=== PATIENT | female | born 1970 | race Caucasian/White ===

== ENCOUNTER → 2023-09-06 11:04 | Outpatient (REF) | payer OTHER, SELFPAY | LOC: MRI 3T 11:04 | PROVIDERS: ATTENDING PHYSICIAN Nurse Practitioner Adult Health; FAMILY PHYSICIAN Nurse Practitioner; REFERRING PHYSICIAN Internal Medicine Gastroenterology | DX: K76.9 Liver disease, unspecified (principal) | CPT/HCPCS: 74183; A9575 ==

== ENCOUNTER → 2024-04-30 12:44 | Outpatient (REF) | payer OTHER, SELFPAY | LOC: WOUND 12:44 | PROVIDERS: ATTENDING PHYSICIAN Surgery; FAMILY PHYSICIAN Nurse Practitioner | DX: L97.822 Non-pressure chronic ulcer of other part of left lower leg with fat layer exposed (principal); I89.0 Lymphedema, not elsewhere classified; I87.2 Venous insufficiency (chronic) (peripheral); I73.9 Peripheral vascular disease, unspecified; E11.65 Type 2 diabetes mellitus with hyperglycemia; E66.01 Morbid (severe) obesity due to excess calories; F41.1 Generalized anxiety disorder | CPT/HCPCS: 99204 ==

== ENCOUNTER → 2024-05-09 13:09 | Outpatient (REF) | payer OTHER, SELFPAY | LOC: WOUND 13:09 | PROVIDERS: ATTENDING PHYSICIAN Surgery; FAMILY PHYSICIAN Nurse Practitioner | DX: L97.822 Non-pressure chronic ulcer of other part of left lower leg with fat layer exposed (principal); I89.0 Lymphedema, not elsewhere classified; I87.2 Venous insufficiency (chronic) (peripheral); I73.9 Peripheral vascular disease, unspecified; E11.65 Type 2 diabetes mellitus with hyperglycemia; E66.01 Morbid (severe) obesity due to excess calories; F41.1 Generalized anxiety disorder | CPT/HCPCS: 99213 ==

== ENCOUNTER → 2024-05-13 14:06 | Outpatient (REF) | payer OTHER, SELFPAY | LOC: RAD 14:06 | PROVIDERS: ATTENDING PHYSICIAN Surgery; FAMILY PHYSICIAN Nurse Practitioner | DX: L97.822 Non-pressure chronic ulcer of other part of left lower leg with fat layer exposed (principal); I73.9 Peripheral vascular disease, unspecified; I89.0 Lymphedema, not elsewhere classified; I87.2 Venous insufficiency (chronic) (peripheral) | CPT/HCPCS: 93922; 93925; 93970 ==

== ENCOUNTER 2024-06-18 07:11 | Outpatient (RCR) | payer OTHER, SELFPAY | END 2024-06-18 23:59 | disposition home or self-care (01) | LOC: RPT 07:11 | PROVIDERS: ATTENDING PHYSICIAN Nurse Practitioner; FAMILY PHYSICIAN Family Medicine | DX: I89.0 Lymphedema, not elsewhere classified (principal); Z73.6 Limitation of activities due to disability; R26.2 Difficulty in walking, not elsewhere classified | CPT/HCPCS: 97163; 97535 ==

== ENCOUNTER 2024-12-19 06:04 | Inpatient (IN) | payer OTHER, SELFPAY ==
[2024-12-18 22:28] VITALS: BP 165/89
[2024-12-18 22:55] LABS: % Basophils 0.7 % (0-2); % Immature Granulocytes 0.7 % (0-0.5); % Lymphocytes 22.7 % (20.5-51.1); % Monocytes 7.7 % (1.7-9.3); % Neutrophils 67.2 % (42.2-75.2); Absolute Basophils 0.1 10^3/uL (0-0.2); Absolute Eosinophils 0.1 10^3/uL (0-0.7); Absolute Immature Granulocytes 0.1 10^3/uL (0-0.05); Absolute Monocytes 0.7 10^3/uL (0.1-0.6); Hematocrit 36.8 % (37.0-47.0); Hemoglobin 12.5 g/dL (12.0-16.0); Mean Corpuscular Hgb 28.7 pg (27.0-31.0); Mean Corpuscular Volume 84.6 fL (81.0-99.0); Mean Platelet Volume 9.8 fL (7.4-10.4); Nucleated Red Blood Cells % 0 %; Platelet Count 366 10^3/uL (130-400); Red Blood Cell Count 4.35 10^6/uL (4.20-5.40); Red Cell Dist. Width 16.2 % (11.5-14.5)
[2024-12-18 23:19] LABS: ALT (SGPT) 17 U/L (0-35); AST (SGOT) 15 U/L (14-36); Albumin 4.1 g/dl (3.5-5.0); Alkaline Phosphatase 157 U/L (38-126); Blood Urea Nitrogen 20 mg/dl (7-17); Calcium 9.5 mg/dl (8.4-10.2); Carbon Dioxide 23 mmol/L (22-30); Chloride 102 mmol/L (98-107); Glucose 562 mg/dl (70-99); Potassium 4.7 mmol/L (3.5-5.1); Sodium 133 mmol/L (135-145); Total Protein 7.6 g/dl (6.3-8.2); eGFR > 60.00
--- NOTE | 2024-12-19 01:02 | ED.GENMED ---
History of Present Illness
<Nikko Hua DO - Last Filed: 12/19/24 01:04>
General
Chief Complaint: Skin Problem
Time Seen by Provider: 12/19/24 00:43
<Maria De Jesus Tian PA-C - Last Filed: 12/19/24 07:47>
General
Source: patient
Exam Limitations: none
Nursing documentation reviewed up to this point in time: agreed with
History of Present Illness
History of Present Illness:
54-year-old female with past history of insulin-dependent diabetes, asthma, who presents emergency department today with concerns of a poor healing wound to her left lower extremity. Patient reports that this wound has been going on for the past
month. She reports that she does not currently follow with a movie machine operator. She has a very low sensation in her lower extremities. Patient reports that she was seen for the wound a month ago was on Keflex which did not help her symptoms. Patient
reports that she recently lost insurance coverage for her insulin and has been off her insulin for multiple weeks. Patient recently got coverage again however she only has coverage for short acting insulin currently does not have a long-acting
insulin. Patient denies dizziness, lightheadedness, burning with urination. She denies any fevers or chills.
Past History
<DO Brandan Flannery Last Filed: 12/19/24 01:04>
Past History
ED Past Medical History: Asthma and NIDDM
ED Past Surgical History:
Social History
Tobacco: Non-smoker
Alcohol: None
Drug: None
Personal:
Living: with family
Employment: Employed
Family History
Family History: Other
Review of Systems
<NAIDA Michelle Last Filed: 12/19/24 07:47>
Review of Systems
All Other Systems: ROS reviewed and negative except as documented in HPI and ROS
Phy Exam
<Maria De Jesus Tian PA-C - Last Filed: 12/19/24 07:47>
Physical Exam
Physical Exam:
General: Patient is well appearing and in no acute distress; non-toxic
Skin: Bilateral lower extremities edematous with small weeping wound to left lower extremity with scattered areas of erythema
Head: Normocephalic, atraumatic
Eyes: Sclera non-icteric. EOMs intact.
Cardiac: Regular rate and rhythm, normal
Peripheral Vascular: 2+ DP pulses
Pulm: Normal respiratory effort, no wheezes, rales, or rhonchi
Abdomen: No abdominal tenderness to palpation
Neuro: CN II-XII intact, no focal neurologic deficits.
Psychiatric: Appropriate mood and affect.
Course
<Nikko Hua DO - Last Filed: 12/19/24 01:04>
Orders/Labs/Results
Orders:
Orders
12/18/24 22:47
Complete Blood Count/With Diff Urgent
Comprehensive Metabolic Panel Urgent
12/19/24 00:44
0.9% Sodium Chloride 1000 ml [Nss] 1,000 ml IV BOLUS
12/19/24 01:15
Insulin Aspart [NOVOLOG vial] 11 units SC NOW STA
12/19/24 01:26
Glucose Stat
12/19/24 03:20
Glucose Urgent
12/19/24 04:43
Cephalexin Monohydrate [Keflex] 500 mg PO NOW STA
12/19/24 04:44
0.9% Sodium Chloride 250 ml [Nss] 250 ml IV BOLUS
12/19/24 04:48
Sulfamethox./Trimethoprim Ds [Bactrim Ds 800 mg/160 mg] 1 tablet PO NOW STA
12/19/24 05:48
Admit/Transfer Patient As Directed
Co-Sign Provider:
Level of Care: Inpatient admission
Assign to:: Medical/Surgical
Physician / Group: Federico
Diagnosis: Cellulitis, Uncontrolled DM
Reason for Hospitalization: Cellulitis, Uncontrolled DM
Expected length of stay greater than two midnights?: Yes
ELOS- Estimated Length of Stay in days: 3
I certify the patient meets the requirements for IP care: Yes
PRN Pain Medication Management As Directed
May give lesser potent ordered pain med per pt: Yes
preference::
Protocol:: Medication orders for pain may be administered in a
manner that supports deferring to patient preference
when the pt is:
- Requesting an ordered lesser potent pain medication.
Least to most potent pain medications are defined
as: acetaminophen < NSAID < tramadol < opioids
(morphine, oxycodone, hydromorphone).
- Requesting a lesser dose of the same medication IF
ORDERED.
- Requesting a less intrusive route of administration
if both routes are prescribed by the provider (PO <
IV).
12/19/24 05:49
Code Status As Directed
Resuscitation Status: Full Code
12/19/24 05:51
Insulin Glargine Lantus [Lantus] 40 units Subcutaneous Insulin Syringe [Syringe-Insulin] 0 unit SC ONCE
12/19/24 Breakfast
2000 calorie (17 carb) Diabetic
At Your Request: Full Participation
Does patient need a safe tray?: No
12/19/24 06:22
Acetaminophen [Tylenol] 650 mg PO Q4HPRN PRN
Albuterol Nebs [Ventolin Nebules] 2.5 mg INH R Q4HPRN PRN
Dextrose 50%-Water [Dextrose 50% Syringe] 12.5 grams IV [id number] PRN
Glucagon [GlucaGen] 1 mg IM PRN PRN
12/19/24 06:22
WOUND/OSTOMY CONSULT Routine
Reason for Consult: LLE wound
Activity As Directed
Activity Level: Ambulate
With Assistance
Bedside Glucose Monitoring As Directed
Frequency: AC&HS
Additional Instructions:: Change to q6h if pt on TPN, tube feeding or not eating
I/O [Intake/ Output] As Directed
Frequency: Per unit guidelines
Vital Signs As Directed
Frequency: Per unit guidelines
Weight As Directed
Frequency: Daily
Oxygen Therapy [O2 Therapy] [RESP] Routine
Titrate/Wean O2 to maintain O2 sat greater than (%): 94
PT Consult [Pt Eval And Treat] Routine
Activity Level: Ambulate
With Assistance
US Periph Art LOWER Ext w MADISON Routine
Comment:
Reason For Exam: Lymphedema / discoloration
DX Deep Vein Thrombosis Video Routine
12/19/24 07:00
CeFAZolin 2 GRAM [Ancef] 2 grams in 10 ml IV Q8
12/19/24 07:30
Insulin Aspart Corrective Mod [Novolog Flexpen-Moderate Resistance] See Protocol SC AC
Insulin Aspart [NOVOLOG vial] 12 units SC AC
12/19/24 08:00
Fluticasone/Salmeterol 115/21 [Advair Hfa 115/21 Mcg Inhaler] 2 puff INH R BID
Gabapentin [Neurontin] 300 mg PO TID
Insulin Glargine Lantus [Lantus] 40 units Subcutaneous Insulin Syringe [Syringe-Insulin] 0 unit SC DAILY
Venlafaxine Extended Release [Effexor Xr] 75 mg PO DAILY
12/19/24 18:00
Enoxaparin Sodium [Lovenox] 40 mg SC QPM
Metformin Extended Release [Glucophage Xr Extended Release] 500 mg PO QPM
12/20/24 06:00
Basic Metabolic Panel IN AM
Complete Blood Count/No Diff IN AM
Glycohemoglobin (HgbA1c) IN AM
Abnormal Lab Results
12/18/24 12/19/2425
22:47 01:24 01:26
Hct 36.8 L %
(37.0-47.0)
RDW 16.2 H %
(11.5-14.5)
Abs Immat Gran (auto) 0.1 H 10^3/uL
(0-0.05)
Absolute Monos (auto) 0.7 H 10^3/uL
(0.1-0.6)
Immature Gran % 0.7 H %
(0-0.5)
Sodium 133 L mmol/L
(135-145)
BUN 20 H mg/dl
(7-17)
Glucose 562 H* mg/dl 563 H* mg/dl
(70-99) (70-99)
Alkaline Phosphatase 157 H U/L
(38-126)
POC Glucose 570 H* mg/dl
(70-99)
12/19/24 12/19/24
03:00 03:20
Hct
RDW
Abs Immat Gran (auto)
Absolute Monos (auto)
Immature Gran %
Sodium
BUN
Glucose 498 H* mg/dl
(70-99)
Alkaline Phosphatase
POC Glucose 525 H* mg/dl
(70-99)
12/18/24 22:47
12/19/24 03:20
Vital Signs
Initial and Last Documented VS:
Initial Vital Signs
Temp Pulse Resp BP Pulse Ox
97.8 F 91 16 165/89 100
12/18/24 22:28 12/18/24 22:28 12/18/24 22:28 12/18/24 22:28 12/18/24 22:28
Last Documented Vital Signs
Temp Pulse Resp BP Pulse Ox
97.8 F 91 20 165/89 100
12/18/24 22:28 12/18/24 22:28 12/19/24 01:08 12/18/24 22:28 12/18/24 22:28
<Maria De Jesus Tian PA-C - Last Filed: 12/19/24 07:47>
Orders/Labs/Results
Orders:
Orders
12/18/24 22:47
Complete Blood Count/With Diff Urgent
Comprehensive Metabolic Panel Urgent
12/19/24 00:44
0.9% Sodium Chloride 1000 ml [Nss] 1,000 ml IV BOLUS
12/19/24 01:15
Insulin Aspart [NOVOLOG vial] 11 units SC NOW STA
12/19/24 01:26
Glucose Stat
12/19/24 03:20
Glucose Urgent
12/19/24 04:43
Cephalexin Monohydrate [Keflex] 500 mg PO NOW STA
12/19/24 04:44
0.9% Sodium Chloride 250 ml [Nss] 250 ml IV BOLUS
12/19/24 04:48
Sulfamethox./Trimethoprim Ds [Bactrim Ds 800 mg/160 mg] 1 tablet PO NOW STA
12/19/24 05:48
Admit/Transfer Patient As Directed
Co-Sign Provider:
Level of Care: Inpatient admission
Assign to:: Medical/Surgical
Physician / Group: Federico
Diagnosis: Cellulitis, Uncontrolled DM
Reason for Hospitalization: Cellulitis, Uncontrolled DM
Expected length of stay greater than two midnights?: Yes
ELOS- Estimated Length of Stay in days: 3
I certify the patient meets the requirements for IP care: Yes
PRN Pain Medication Management As Directed
May give lesser potent ordered pain med per pt: Yes
preference::
Protocol:: Medication orders for pain may be administered in a
manner that supports deferring to patient preference
when the pt is:
- Requesting an ordered lesser potent pain medication.
Least to most potent pain medications are defined
as: acetaminophen < NSAID < tramadol < opioids
(morphine, oxycodone, hydromorphone).
- Requesting a lesser dose of the same medication IF
ORDERED.
- Requesting a less intrusive route of administration
if both routes are prescribed by the provider (PO <
IV).
12/19/24 05:49
Code Status As Directed
Resuscitation Status: Full Code
12/19/24 05:51
Insulin Glargine Lantus [Lantus] 40 units Subcutaneous Insulin Syringe [Syringe-Insulin] 0 unit SC ONCE
12/19/24 Breakfast
2000 calorie (17 carb) Diabetic
At Your Request: Full Participation
Does patient need a safe tray?: No
12/19/24 06:22
Acetaminophen [Tylenol] 650 mg PO Q4HPRN PRN
Albuterol Nebs [Ventolin Nebules] 2.5 mg INH R Q4HPRN PRN
Dextrose 50%-Water [Dextrose 50% Syringe] 12.5 grams IV [id number] PRN
Glucagon [GlucaGen] 1 mg IM PRN PRN
12/19/24 06:22
WOUND/OSTOMY CONSULT Routine
Reason for Consult: LLE wound
Activity As Directed
Activity Level: Ambulate
With Assistance
Bedside Glucose Monitoring As Directed
Frequency: AC&HS
Additional Instructions:: Change to q6h if pt on TPN, tube feeding or not eating
I/O [Intake/ Output] As Directed
Frequency: Per unit guidelines
Vital Signs As Directed
Frequency: Per unit guidelines
Weight As Directed
Frequency: Daily
Oxygen Therapy [O2 Therapy] [RESP] Routine
Titrate/Wean O2 to maintain O2 sat greater than (%): 94
PT Consult [Pt Eval And Treat] Routine
Activity Level: Ambulate
With Assistance
US Periph Art LOWER Ext w MADISON Routine
Comment:
Reason For Exam: Lymphedema / discoloration
DX Deep Vein Thrombosis Video Routine
12/19/24 07:00
CeFAZolin 2 GRAM [Ancef] 2 grams in 10 ml IV Q8
12/19/24 07:30
Insulin Aspart Corrective Mod [Novolog Flexpen-Moderate Resistance] See Protocol SC AC
Insulin Aspart [NOVOLOG vial] 12 units SC AC
12/19/24 08:00
Fluticasone/Salmeterol 115/21 [Advair Hfa 115/21 Mcg Inhaler] 2 puff INH R BID
Gabapentin [Neurontin] 300 mg PO TID
Insulin Glargine Lantus [Lantus] 40 units Subcutaneous Insulin Syringe [Syringe-Insulin] 0 unit SC DAILY
Venlafaxine Extended Release [Effexor Xr] 75 mg PO DAILY
12/19/24 18:00
Enoxaparin Sodium [Lovenox] 40 mg SC QPM
Metformin Extended Release [Glucophage Xr Extended Release] 500 mg PO QPM
12/20/24 06:00
Basic Metabolic Panel IN AM
Complete Blood Count/No Diff IN AM
Glycohemoglobin (HgbA1c) IN AM
Abnormal Lab Results
12/18/24 12/19/24 12/19/24
22:47 01:24 01:26
Hct 36.8 L %
(37.0-47.0)
RDW 16.2 H %
(11.5-14.5)
Abs Immat Gran (auto) 0.1 H 10^3/uL
(0-0.05)
Absolute Monos (auto) 0.7 H 10^3/uL
(0.1-0.6)
Immature Gran % 0.7 H %
(0-0.5)
Sodium 133 L mmol/L
(135-145)
BUN 20 H mg/dl
(7-17)
Glucose 562 H* mg/dl 563 H* mg/dl
(70-99) (70-99)
Alkaline Phosphatase 157 H U/L
(38-126)
POC Glucose 570 H* mg/dl
(70-99)
12/19/24 12/19/24
03:00 03:20
Hct
RDW
Abs Immat Gran (auto)
Absolute Monos (auto)
Immature Gran %
Sodium
BUN
Glucose 498 H* mg/dl
(70-99)
Alkaline Phosphatase
POC Glucose 525 H* mg/dl
(70-99)
12/18/24 22:47
12/19/24 03:20
Vital Signs
Initial and Last Documented VS:
Initial Vital Signs
Temp Pulse Resp BP Pulse Ox
97.8 F 91 16 165/89 100
12/18/24 22:28 12/18/24 22:28 12/18/24 22:28 12/18/24 22:28 12/18/24 22:28
Last Documented Vital Signs
Temp Pulse Resp BP Pulse Ox
97.8 F 91 20 165/89 100
12/18/24 22:28 12/18/24 22:28 12/19/24 01:08 12/18/24 22:28 12/18/24 22:28
Malilt;Maria De Jesus Tian PA-C - Last Filed: 12/19/24 07:47>
MDM/Problems Addressed
Differential Diagnosis Includes:
DKA, HHS, cellulitis, diabetic wound, peripheral vascular disease, uncontrolled diabetes
MDM/Problems Addressed:
54-year-old female with a past medical history of asthma, insulin-dependent diabetes presents emergency department today with concerns of bilateral lower extremity edema, poor healing wound, and uncontrolled diabetes. On physical exam, she has
bilateral lower extremity edema with weeping wound. Is persistently draining fluid. It is a chronic wound however she feels like it is not improving even after Plex. She has significant gaps in her insurance coverage and care and reports that she
has been off insulin for multiple weeks and currently does not have a long-acting insulin. Initial plan was to start her on Bactrim for MRSA coverage and control her sugars and send her home to her PCP however after he doses of insulin and fluids,
her sugar fails to improve. In light of gaps in coverage, and unable to get into a receipt and report clerk, along with high resistant sugars, will admit for further diabetic management. Patient referred for admission.
<Maria De Jesus Tian PA-C - Last Filed: 12/19/24 07:47>
*Pulse Oximetry
Patient hypoxic: no
*Critical Care Note
Total Time (30-74mins, 75-104mins- exclusive of procedures): Not Applicable
Data Reviewed
Review of Other/Old Records Reveals: Records (Reviewed discharge summary from 03/12/2023 patient seen for acute hyperglycemia and new onset diabetes)
Source: patient and records
ED Attending Note
<Nikko Hua DO - Last Filed: 12/19/24 01:04>
ED Attending Note
Patient seen and examined by attending physician: Yes
I performed the substantive portion of visit, reviewed & personally made and approve the management plan that is documented in note by myself or MYKEL.: Yes
ED Attending Note:
I have seen and evaluated the patient with a [id number] encounter. I have spoken to the advance practicer provider and involved in the medical history, the physical exam, medical decision making.
Evaluation and management service: agree unless noted differently below.
Results interpretation: agree unless noted differently below.
Focused HPI: 54-year-old female presenting for evaluation of chronic wound to her left leg. Patient has a history of lymphedema. She finished a course of Keflex a few weeks ago. She thinks it helped
Physical exam: Lymphedema to both legs. Chronic wound to left lateral distal leg with clear fluid oozing
Medical Decision Making: Patient states she did not have insurance recently and was out of Lasix and her insulin. Patient is hyperglycemic but no evidence of DKA. She states she has insulin at home now. She does not check her blood sugar but her
monitor is ready for pickup, per patient. I did offer admission given her uncontrolled blood sugar and her edema. Patient states she going home. Will give dose of insulin and start Bactrim
-
Portions of this chart may have been created with voice recognition software.� Occasional wrong word or��sound alike� substitutions may have occurred due to the inherent limitations of voice recognition software.
Discharge Plan
Departure
Patient Disposition: Admit
Date of Disposition: 12/19/24
Time of Disposition: 04:54
Admit to: Med/Surg
Presentation/result/management discussed w/ accepting MD/DO: Hospitalist
Patient with high blood pressure during this ER visit?: Yes
Condition: Fair
Discharge Problem:
Uncontrolled diabetes mellitus, Non-healing wound
Interventions
Interventions:
*Risk Screen - Suicide Last Done: 12/18/24 22:28
*Neglect/Abuse Screening Last Done: 12/18/24 22:28
ED-Skin Assessment Last Done: 12/19/24 00:30
[2024-12-19] MEDS: NSS 1000 IV (01:04)
[2024-12-19 01:26] LABS: Glucose - Point of Care 570 mg/dl (70-99)
[2024-12-19 01:56] LABS: Glucose 563 mg/dl (70-99)
[2024-12-19] MEDS: NOVOLOG vial 11 UNITS SC (02:05)
[2024-12-19 03:02] LABS: Glucose - Point of Care 525 mg/dl (70-99)
[2024-12-19 03:53] LABS: Glucose 498 mg/dl (70-99)
[2024-12-19] MEDS: NSS 250 IV (05:22)
[2024-12-19] MEDS: BACTRIM DS 800 MG/160 MG 1 TABLET PO (05:22)
--- NOTE | 2024-12-19 05:52 | HPS.HSE ---
Family Physician
-
Family Physician: Alejandra Cohen
Chief Complaint
-
L Foot Redness / Leg Wound, Uncontrolled Glucose
History of Present Illness
Patient is a 54y F with PMH significant for DM-II, chronic lymphedema and morbid obesity who presents to ED complaining of uncontrolled DM and L foot redness / wound. Patient notes that she has been out of insulin for the past 2 1/2 weeks due to
insurance issues. She was seen by her PCP today and it was noted as well that her L foot was very red, swollen and warm. She was sent to the ED for evaluation. Patient reports intermittent chills x several days. No N/V. She has decreased
sensation in the feet - no pain. She has a chronic wound on the lateral aspect of the L lower leg which weeps clear fluid - no change / purulence / etc.
Medical History
Past Medical History
Past Medical History: Reports Other
Additional Past Medical History:
DM-II
Chronic Lymphedema
Morbid Obesity
Asthma
Anxiety / Depression
Past Surgical History: Reports Other
Additional Past Surgical History:
x 3
D&C
Right Ankle ORIF
Right Wrist ORIF
Social History
Tobacco: Non-smoker
Alcohol: Occasional
Drug: None
Family History
Family History: Not pertinent
Allergies / Home Medications
Allergies reflects when Allergies were last updated in [facility].
Home Medications with original date entered in [facility]
Allergy/Medication List:
Allergies
Allergy/AdvReac Type Severity Reaction Status Date / Time
house dust Allergy Unknown Verified 12/18/24 22:31
pollen extracts (Pollen Allergy Unknown Verified 12/18/24 22:31
Extracts)
Home Medications
albuterol sulfate 90 mcg/actuation aerosol inhaler 2 puff inhalation R Q4 PRN sob/wheezing 03/10/23
gabapentin 300 mg capsule 300 mg PO TID Pain 03/10/23
insulin aspart U-100 100 unit/mL (3 mL) subcutaneous pen (Novolog FlexPen U-100 Insulin aspart) 15 - 20 unit SC AC 03/23/23
insulin glargine 100 unit/mL (3 mL) subcutaneous pen (Lantus Solostar U-100 Insulin) 40 unit SC HS 03/23/23
metformin 500 mg tablet,extended release 24 hr 500 mg PO QPM 03/23/23
fluticasone propionate 115 mcg-salmeterol 21 mcg/actuation HFA inhaler (Advair HFA) 2 puff inhalation BID 12/19/24
venlafaxine 75 mg tablet 75 mg PO DAILY 12/19/24
Review of Systems
-
History Source: Patient
A 12 point ROS was completed and negative except as noted: Yes
Constitutional: Reports Fatigue and Chills; Denies Fever
Respiratory: Denies Cough or Trouble Breathing
Cardiac: Denies Chest Pain or Palpitations
Abdomen/GI: Denies Abdominal Pain, Nausea, Vomiting or Diarrhea
: Denies Dysuria, Frequency or Flank Pain
Musculoskeletal: Reports Edema; Denies Joint Pain
Skin: Reports Other (Increased redness of the L foot. Chronic wound on the L lower leg.)
Physical Exam
Vital Signs
Vital Signs
Temp Pulse Resp BP Pulse Ox
97.8 F 91 20 165/89 100
12/18/24 22:28 12/18/24 22:28 12/19/24 01:08 12/18/24 22:28 12/18/24 22:28
Physical Exam
General: Other (54y F in no acute distress.)
HEENT: Moist mucous membranes and Other (Thick neck.)
Respiratory: Clear; No Wheezes, Rales or Rhonchi
Cardiac: S1/S2, Regular Rhythm and Murmur (II/ JINA)
GI: Other (Obese, not tender, pos BS.)
Musculoskeletal: Other (Marked bilateral LE lymphedema. Dressing in place over LLE lateral ulceration with clear oozing / discharge. No bleeding / purulence.)
Skin: Other (L foot with deep red erythema of all toes and dorsum of foot. Extension / lymphagitis into the medial aspect of the foot.)
Neuro: AO x 3
Laboratory Results
-
12/18/24 22:47
12/19/24 03:20
Laboratory Results
Total Bilirubin 1.0 mg/dl (0.2-1.3) 12/18/24 22:47
AST 15 U/L (14-36) 12/18/24 22:47
ALT 17 U/L (0-35) 12/18/24 22:47
Alkaline Phosphatase 157 U/L (38-126) H 12/18/24 22:47
Impression/Plan
-
A/P: Patient is a 54y F with PMH significant for DM-II, lymphedema and morbid obesity who presents to ED for evaluation of uncontrolled DM and L foot redness.
LLE Cellulitis
- Admit for further evaluation and treatment.
- Erythema, induration and increased warmth in the L foot with spread into the medial aspect of the foot.
- IV Ancef for now and follow for clinical improvement.
- Check non-invasive vascular studies as well given atypical discoloration.
Chronic LLE Wound
Chronic Lymphedema
- Stable. Does not appear acutely infected / involved with foot cellulitis.
- Wound Care eval for additional recommendations.
- PT / Lymphedema eval.
DM-II, Uncontrolled.
- Marked hyperglycemia secondary to lack of insulin +/- acute infection.
- Normal anion gap.
- Restart basal : bolus insulin regimen.
- Follow glucose and cover with SSI as needed.
- Adjust regimen for improved glycemic control.
Asthma without Acute Exacerbation
- Stable. Continue Advair / albuterol PRN.
Anxiety / Depression
- Stable. Continue venlafaxine.
Morbid Obesity due to excess calories
- Affects all aspects of care.
- Encourage healthy diet and increased activity with goal of weight loss.
DVT Prophylaxis: Lovenox
Code Status: Full
[2024-12-19] MEDS: LANTUS 0.4 UNITS SC ×2 (06:19→09:38)
[2024-12-19] MEDS: ANCEF 10 IV ×3 (07:50→23:40)
[2024-12-19] MEDS: ADVAIR HFA 115/21 MCG INHALER 2 PUFF INH ×2 (08:18→19:18)
[2024-12-19 08:45] LABS: Glucose - Point of Care 386 mg/dl (70-99)
[2024-12-19 08:53] VITALS: BP 115/73
[2024-12-19] MEDS: NOVOLOG vial 12 UNITS SC (09:34)
[2024-12-19] MEDS: EFFEXOR XR 75 MG PO ×2 (09:36→22:03)
[2024-12-19] MEDS: NOVOLOG FLEXPEN-MODERATE RESISTANCE 9 UNITS SC (09:37)
[2024-12-19] MEDS: NEURONTIN 300 MG PO (09:38)
--- NOTE | 2024-12-19 09:45 | WOUNDNOTE ---
WO RN note: Patient admitted with cellulitis, uncontrolled DM, LLE/L foot cellulitis. Patient lives with her daughter.
See H&P for complete history.
PMH: DM, lymphedema, obesity, LLE wound, asthma, anxiety/depression, C section, R ankle ORIF, R wrist ORIF.
Wound Location and type/assessment: Patient admitted with: L lateral calf dermal ulcer r/t lymphedema, weeping skin L dorsal foot/LE. MASD abdominal fold and coccyx crease. Heels blanchable red (L more red than R). + LE edema. Patient reports LE
edema is chronic. +Pedal pulses heard via portable Doppler.
Appetite: good.
Pressure redistribution devices in place: ED stretcher. Patient ambulates with crutches.
Plan: Patient incontinent of urine. Assisted patient with changing her coni pads/coni care. LLE dressing applied. Bilateral knee high Kavon wraps applied (padded ankles creases with ABD pads/non woven gauze pads under Kavon). Air chair cushion placed
under each heel. Patient stated she's been at outpatient lymphedema clinic however, she can't afford buying the compression wraps. She stated her compression pumps have broken.
Confirmed orders including bilateral knee high Kavon wraps with Dr. Dominguez and updated RN Jeff.
Care plan to be updated and will follow as needed.
Note to case management requested for discharge: VN if patient goes home.
Recommend follow up at wound care center upon discharge and lymphedema clinic.
--- NOTE | 2024-12-19 10:05 | WOUNDNOTE ---
WO RN note: Patient admitted with cellulitis, uncontrolled DM, LLE/L foot cellulitis. Patient lives with her daughter.
See H&P for complete history.
PMH: DM, lymphedema, obesity, LLE wound, asthma, anxiety/depression, C section, R ankle ORIF, R wrist ORIF.
Wound Location and type/assessment: Patient admitted with: L lateral calf dermal ulcer r/t lymphedema, weeping skin L dorsal foot/LE. MASD abdominal fold and coccyx crease. Heels blanchable red (L more red than R). + LE edema. Patient reports LE
edema is chronic. +Pedal pulses heard via portable Doppler.
Appetite: good.
Pressure redistribution devices in place: ED stretcher. Patient ambulates with crutches. Patient needed help lifting her legs onto the ED stretcher. Discussed with LESLY Aguilar re: switching to a [facility] [employer] [facility] air bed. t/c Spoke with [employer] Demetri
and requested a [facility] air bed.
Plan: Patient incontinent of urine. Assisted patient with changing her coni pads/coni care. LLE dressing applied. Bilateral knee high Kavon wraps applied (padded ankles creases with ABD pads/non woven gauze pads under Kavon). Air chair cushion placed
under each heel. Patient stated she's been at outpatient lymphedema clinic however, she can't afford buying the compression wraps. She stated her compression pumps have broken.
Confirmed orders including bilateral knee high Kavon wraps with Dr. Dominguez and updated LESLY Aguilar.
Care plan to be updated and will follow as needed.
Note to case management requested for discharge: VN if patient goes home.
Recommend follow up at wound care center upon discharge and lymphedema clinic.
--- NOTE | 2024-12-19 10:07 | WOUNDNOTE ---
L HEEL (BLANCHABLE PERSISTENT RED)
--- NOTE | 2024-12-19 11:13 | PN.DE.MGMTRT ---
Insulin Management
- -
12/19/2024 Diabetes Management Consult
Patient admitted 12/19 with c/p non healing wound LLE. PMH diabetes, lymphedema, morbid obesity, asthma. Prior to admission taking lantus 40 units @ HS with novolog 15 units with breakfast and lunch and 20 units with dinner. A1C 08/10 15%, update
pending; cr .7, eGFR > 60.
Patient is awake, alert and oriented, able to discuss diabetes care. States she has had diabetes 3 years, follows with primary doctor for ongoing management. States she somehow lost her Medicaid and could not get her lantus so was without for 2
1/2 weeks. States she now has her medicaid and has resumed her insulin. States she also has a Alon 3.
Dr Caballero has ordered lantus 40 units in AM with novolog 12 units ac and metformin ER 500 mg pm.
Will change lantus to hs tonight 30 units, check 3AM glucose, then Monday HS resume 40 units @ HS. continue novolog 12 units AC with moderate corrective and metformin ER. Diet changed from 2000 to 1600 calories.
Discussed with nurse
Will follow
Diabetes History
- -
Type of Diabetes: 2 requiring insulin
Pre-Admission Diabetes Regimen
12/18/24
22:47
Creatinine 0.7
Insulin Pump Settings
IP Diabetes Regimen
12/18/24 12/19/24 12/19/24
22:47 01:24 01:26
Glucose 562 H* 563 H*
POC Glucose 570 H*
12/19/24 12/19/24 12/19/24
03:00 03:20 08:43
Glucose 498 H*
POC Glucose 525 H* 386 H
Patient Education
--- NOTE | 2024-12-19 12:54 | W.PN.UPDATE ---
Update Note
Progress Note Update
Antibiotics
Wound care
No evidence of DVT
Follow-up arterial studies
Appreciate diabetic team's assistance, patient will now have access to insulin
Insulin adjustment
Monitor sodium with resuscitation
[2024-12-19 12:56] LABS: Glucose - Point of Care 340 mg/dl (70-99)
[2024-12-19] MEDS: NOVOLOG FLEXPEN 12 UNITS SC ×2 (13:03→17:18)
[2024-12-19] MEDS: NOVOLOG FLEXPEN-MODERATE RESISTANCE 7 UNITS SC (13:04)
[2024-12-19 13:50] LABS: Glycohemoglobin (HgbA1c) 13.9 % (4.0-5.6)
[2024-12-19] MEDS: LR 1000 IV (14:47)
[2024-12-19 14:48] VITALS: BP 146/91
[2024-12-19 15:56] VITALS: BP 147/66
--- NOTE | 2024-12-19 16:01 | PTCARENOTE ---
pt presents from ED via stretcher. pt is AAO*3, Vss, room air. pt denies any pain at this time. pt oriented to the room. call page within the reach. plan of care ongoing.
[2024-12-19 16:44] LABS: Glucose - Point of Care 269 mg/dl (70-99)
[2024-12-19] MEDS: NOVOLOG FLEXPEN-MODERATE RESISTANCE 5 UNITS SC (17:17)
[2024-12-19] MEDS: LOVENOX 40 MG SC (17:18)
[2024-12-19] MEDS: GLUCOPHAGE XR EXTENDED RELEASE 500 MG PO (17:18)
[2024-12-19 17:28] VITALS: BMI 59.1
[2024-12-19] MEDS: DESENEX/MITRAZOL/ZEASORB 1 APPLIC TOPICAL (19:52)
[2024-12-19] MEDS: HYDROPHOR 1 APPLIC TOPICAL (19:52)
[2024-12-19 21:21] LABS: Glucose - Point of Care 239 mg/dl (70-99)
[2024-12-19] MEDS: LANTUS 0.3 UNITS SC (22:03)
[2024-12-19] MEDS: NEURONTIN 600 MG PO (22:03)
[2024-12-19 23:34] VITALS: BP 125/76
[2024-12-20 03:10] LABS: Glucose - Point of Care 244 mg/dl (70-99)
[2024-12-20 05:36] VITALS: BMI 59.2
[2024-12-20 05:53] LABS: Hematocrit 32.2 % (37.0-47.0); Hemoglobin 10.7 g/dL (12.0-16.0); Mean Corp Hgb Conc. 33.2 g/dL (33.0-37.0); Mean Corpuscular Hgb 28.5 pg (27.0-31.0); Mean Corpuscular Volume 85.9 fL (81.0-99.0); Mean Platelet Volume 9.9 fL (7.4-10.4); Platelet Count 303 10^3/uL (130-400); Red Blood Cell Count 3.75 10^6/uL (4.20-5.40); Red Cell Dist. Width 16.2 % (11.5-14.5); White Blood Cell Count 5.8 10^3/uL (4.8-10.8)
[2024-12-20 06:16] LABS: Blood Urea Nitrogen 16 mg/dl (7-17); Carbon Dioxide 23 mmol/L (22-30); Chloride 109 mmol/L (98-107); Estimated Creatinine Clearance > 125 ml/min; Glucose 218 mg/dl (70-99); Potassium 4.2 mmol/L (3.5-5.1); Sodium 137 mmol/L (135-145); eGFR > 60.00
[2024-12-20 07:10] VITALS: BP 139/74
[2024-12-20 07:58] LABS: Glucose - Point of Care 221 mg/dl (70-99)
[2024-12-20] MEDS: ADVAIR HFA 115/21 MCG INHALER 2 PUFF INH ×2 (08:24→19:22)
--- NOTE | 2024-12-20 08:24 | PN.DE.MGMTRT ---
Insulin Management
- -
12/20/2024: Diabetes Management Follow
Patient admitted 12/19 with c/p non healing wound LLE. PMH diabetes, lymphedema, morbid obesity, asthma. Prior to admission taking Lantus 40 units @ HS with NovoLog 15 units with breakfast and lunch and 20 units with dinner. A1C 08/10 15%, update
pending; cr .7, eGFR > 60.
States she has had diabetes 3 years, follows with primary doctor for ongoing management. States she somehow lost her Medicaid and could not get her Lantus so was without for 2 1/2 weeks. States she now has her medicaid and has resumed her insulin.
States she also has a Alon 3.
Patient is awake, alert and oriented, sitting up in bed, offers no complaints, able to discuss diabetes care.
Lantus was changed to HS, Received 30 units @ HS last night, 3AM glucose was 244. FBG 218 V, 221 POC.
Pt is already scheduled to receive increased dose of Lantus 40 units tonight. Will cont w/o adjustments
Premeal glucose yesterday was 269 to 386, required additional corrective insulin
Will increase AC dose to 15 units. Continue moderate corrective and metformin ER. Diet changed from 2000 to 1600 calories.
Discussed with nurse. Will cont to follow and adjust insulin dose further more if necessary
Diabetes History
- -
Type of Diabetes: 2 requiring insulin
Pre-Admission Diabetes Regimen
12/20/24
05:15
Creatinine 0.5 L
Lab Results
Hemoglobin A1c Cancelled 12/19/24 06:00
Insulin Pump Settings
IP Diabetes Regimen
12/19/24 12/19/24 12/19/24
08:43 12:54 16:43
Glucose
POC Glucose 386 H 340 H 269 H
12/19/24 12/20/24 12/20/24
21:20 03:06 05:15
Glucose 218 H
POC Glucose 239 H 244 H
12/20/24
07:57
Glucose
POC Glucose 221 H
Meal type: Dinner
Amount consumed: 100%
Patient Education
[2024-12-20] MEDS: NOVOLOG FLEXPEN 12 UNITS SC (08:42)
[2024-12-20] MEDS: NOVOLOG FLEXPEN-MODERATE RESISTANCE 3 UNITS SC (08:42)
[2024-12-20] MEDS: DESENEX/MITRAZOL/ZEASORB 1 APPLIC TOPICAL ×2 (08:43→19:32)
[2024-12-20] MEDS: ANCEF 10 IV ×3 (08:43→23:04)
[2024-12-20] MEDS: HYDROPHOR 1 APPLIC TOPICAL ×2 (08:44→19:31)
[2024-12-20] MEDS: NEURONTIN 300 MG PO (08:44)
[2024-12-20 12:09] LABS: Glucose - Point of Care 177 mg/dl (70-99)
[2024-12-20] MEDS: NOVOLOG FLEXPEN-MODERATE RESISTANCE 1 UNITS SC (12:20)
[2024-12-20] MEDS: NOVOLOG FLEXPEN 15 UNITS SC ×2 (12:21→16:54)
--- NOTE | 2024-12-20 13:30 | CON.VAS ---
Addendum entered and electronically signed by Justin Foreman III, MD 12/20/24 16:43:
This patient was seen and examined in collaboration with ROGER Villalobos. I agree with the history and physical exam as well as the assessment and plan. I have the following additions:
Morbid obesity
Diabetes
Severe bilateral lower extremity lymphedema
Nonhealing left anterior worley wound
Arterial studies personally reviewed
ABIs could not be measured due to inability to adequately place ankle cuffs due to swelling/lymphedema
TBI's within normal limits bilaterally. No focal velocity elevations from the common femoral artery through the popliteal artery identified bilaterally.
On physical examination she has severe bilateral lower extremity lymphedema
She is nontoxic and in no acute distress
She has many social barriers to a healthy/successful outcome here
I do not believe there is an underlying arterial occlusive problem contributing to her nonhealing wound. Lymphedema appears to be the culprit
Local wound care
Aggressive compression therapy
Diabetes management
Establish follow-up care in the wound care center
Can follow-up with vascular surgery as needed
Signed:
Justin Foreman III, MD
Vascular Surgery
[facility]
Original Note:
Consultation
Consultation Request
Date/Time Consultation Performed: 12/20/24 1:30pm
Performing Provider: Ahsan
Reason for Consultation: LLE nonhealing wound
Medical History
-
Chief Complaint: Nonhealing lower extremity wound
History of Present Illness:
54-year-old female with past medical history significant for uncontrolled diabetes, chronic lymphedema since 2017, morbid obesity who presented to the emergency department complaining of left foot redness/nonhealing chronic wound. Patient notes
that she has been out of insulin for the past 2 weeks or so due to insurance issues. Patient had noted in the ED having intermittent chills for several days, denied nausea vomiting. Patient has a chronic wound to the lateral aspect of the left
lower leg since last February. Due to insurance issues patient has not been following wound care. Patient also states she has been using lymphedema pumps at home but they broke 'a while ago' and she has not been able to get them fixed.
Vascular consult for left lower extremity nonhealing wound. Patient seen at bedside this afternoon. Patient seen ambulating in the room with crutches. Patient has compression wraps around the foot and ankle. See wound care notes for images of
left nonhealing wound and erythema of the left forefoot. Right DP palpable, left DP + Doppler signal. Could not palpate PT pulses due to swelling. Patient admits she is having a hard time taking care of herself at home due to lack of insurance.
Arterial US: MADISON's unobtainable due to large ankles (lymphedema) and inability to adequately place cuffs for inflation/pressure measurement. TBI's within normal limits bilaterally. Arterial duplex examination reveals monophasic waveforms throughout
the bilateral lower extremities. Aorto-iliac inflow disease is a possibility. No focal velocity elevations are identified from the common femoral artery through the popliteal artery bilaterally to suggest significant stenosis across these segments.
Lower extremity venous ultrasound negative for DVT
Past Medical History
Past Medical History: Other (Diabetes type 2, chronic lymphedema, morbid obesity, asthma, anxiety depression)
Past Surgical History: ( x 3, D&C) and Orthopedic
Social History
Alcohol: Occasional
Drug: None
Family History
Family History: Reviewed & Not Pertinent
Allergies / Home Medications
Allergy/AdvReac Type Severity Reaction Status Date / Time
house dust Allergy Unknown Verified 12/18/24 22:31
pollen extracts (Pollen Allergy Unknown Verified 12/18/24 22:31
Extracts)
�Medication �Instructions �Recorded �Confirmed �Type
albuterol sulfate 90 mcg/actuation 2 puff inhalation R Q4HPRN PRN 03/10/23 12/19/24 History
aerosol inhaler sob/wheezing
gabapentin 300 mg capsule 300 mg PO DAILY Pain 03/10/23 12/19/24 History
insulin aspart U-100 100 unit/mL 15 sliding scale dose SC 03/23/23 12/19/24 History
(3 mL) subcutaneous pen (Novolog BID@0800,1200 Diabetes
FlexPen U-100 Insulin aspart)
insulin glargine 100 unit/mL (3 40 unit SC HS Diabetes 03/23/23 12/19/24 History
mL) subcutaneous pen (Lantus
Solostar U-100 Insulin)
metformin 500 mg tablet,extended 500 mg PO QPM Diabetes 03/23/23 12/19/24 History
release 24 hr
fluticasone 250 mcg-salmeterol 50 1 inh inhalation R BID 12/19/24 12/19/24 History
mcg/dose blistr powdr for Lung/Breathing Issues
inhalation (Advair Diskus)
gabapentin 300 mg capsule 600 mg PO HS Pain 12/19/24 12/19/24 History
insulin aspart U-100 100 unit/mL 20 sliding scale dose SC HS 12/19/24 12/19/24 History
subcutaneous solution (Novolog Diabetes
U-100 Insulin aspart)
venlafaxine 75 mg capsule,extended 75 mg PO HS Mental Health/Anxiety 12/19/24 12/19/24 History
release 24 hr (Effexor XR)
Review of Systems
-
History Source: Patient
All other systems: Negative unless noted
Constitutional: Reports Chills
EENT: Reports No Symptoms
Respiratory: Reports No Symptoms
Cardiac: Reports No Symptoms
Vascular: Denies Leg Pain / Claudication
Abdomen/GI: Reports No Symptoms
: Reports No Symptoms
Musculoskeletal: Reports Edema
Skin: Reports Other (Nonhealing left lower extremity wound)
Neurological: Reports No Symptoms
Physical Exam
Vital Signs
Temp Pulse Resp BP Pulse Ox
97.5 F 84 20 139/74 97
12/20/24 07:10 12/20/24 07:10 12/20/24 08:28 12/20/24 07:10 12/20/24 12:39
Lab Results
12/20/24 05:15
12/20/24 05:15
Physical Exam
General: No Apparent Distress
HEENT: Normocephalic and Atraumatic
Respiratory: Non Labored Respirations
Cardiac: Negative JVD
GI: Soft and Non Tender
Musculoskeletal: No Clubbing, No Cyanosis and Edema (Lymphedema)
Skin: Warm and Other (See wound care notes for images)
Neuro: Awake, Alert and Oriented
Psych: Calm
Pulses: Left Dorsalis Pedis: Doppler and Right Dorsalis Pedis: +1
Assessment / Plan
-
54-year-old female here with chronic nonhealing left lower extremity wound, cellulitis of the left foot
Plan:
- Local wound care
- Compression/elevation
- Recommend follow-up with lymphedema clinic
- Case management/social work for financial barriers
Data Reviewed
-
Ultrasound: Discussed with Patient
Labs: Labs Reviewed by me
--- NOTE | 2024-12-20 13:43 | W.PN.HOSP.TC ---
Addendum entered and electronically signed by Mark Dominguez MD 12/21/24 12:27:
[id number]
Addendum entered and electronically signed by Mark Dominguez MD 12/20/24 15:58:
Stage 1 left heel pressure injury, POA
Cellulitis, unclear if related to diabetes
Original Note:
Today's Communication/Plan
-
Cont abx
Vascular consulted
Assessment / Plan
Assessment / Plan
Physical Exam
General: Other (54y F in no acute distress.)
HEENT: Moist mucous membranes and Other (Thick neck.)
Respiratory: Clear; No Wheezes, Rales or Rhonchi
Cardiac: S1/S2, Regular Rhythm and Murmur (II/ JINA)
GI: Other (Obese, not tender, pos BS.)
Musculoskeletal: Other (Marked bilateral LE lymphedema. Dressing in place over LLE lateral ulceration with clear oozing / discharge. No bleeding / purulence.)
Skin: Other (L foot with deep red erythema of all toes and dorsum of foot. Extension / lymphagitis into the medial aspect of the foot.)
Neuro: AO x 3
A/P: Patient is a 54y F with PMH significant for DM-II, lymphedema and morbid obesity who presents to ED for evaluation of uncontrolled DM and L foot redness.
LLE Cellulitis
- Admit for further evaluation and treatment.
- Erythema, induration and increased warmth in the L foot with spread into the medial aspect of the foot.
- IV Ancef for now and follow for clinical improvement.
- ABIS unremarkable;
Chronic LLE Wound
Chronic Lymphedema
- Stable. Does not appear acutely infected / involved with foot cellulitis.
- Wound Care eval for additional recommendations.
- PT / Lymphedema eval.
- No DVT
-Now with LLE numbness- vascular consulted
DM-II, Uncontrolled.
- Marked hyperglycemia secondary to lack of insulin +/- acute infection.
- Normal anion gap.
- Restart basal : bolus insulin regimen.
- Follow glucose and cover with SSI as needed.
- Adjust regimen for improved glycemic control.
Asthma without Acute Exacerbation
- Stable. Continue Advair / albuterol PRN.
Anxiety / Depression
- Stable. Continue venlafaxine.
Morbid Obesity due to excess calories
- Affects all aspects of care.
- Encourage healthy diet and increased activity with goal of weight loss.
DVT Prophylaxis: Lovenox
Code Status: Full
Anticipated Discharge: 24 - 48 hours
Subjective/Interval History
-
Date of Service: December 20, 2024
drainage noted although erythema improved
States left foot is numb for a few days - doppler pulse present
Objective Data
-
Labs:
Laboratory Results
12/20/24
05:15
WBC 5.8
Hgb 10.7 L
Hct 32.2 L
Plt Count 303
Sodium 137
Potassium 4.2
Chloride 109 H
Carbon Dioxide 23
BUN 16
Creatinine 0.5 L
Glucose 218 H
Calcium 9.0
Vital Signs:
Vital Signs
Temp Pulse Resp BP Pulse Ox
97.5 F 84 20 139/74 97
12/20/24 07:10 12/20/24 07:10 12/20/24 08:28 12/20/24 07:10 12/20/24 12:39
I&O
12/19/24 12/20/24 12/21/24
06:59 06:59 06:59
Intake Total 480 / 480
Balance 480 / 480
Review of Systems
-
History Source: Patient
All other systems: Not reviewed unless documented
Data Reviewed
-
CT Scan: Image personally visualized and interpreted and Report Reviewed by me
Labs: Labs Reviewed by me
--- NOTE | 2024-12-20 14:01 | CHAP ---
Ms. Wilson received Sacrament of the Sick and Holy Communion from her parish tourist agent, Fr. Ashraf, on 12/20/24.
[2024-12-20 15:05] VITALS: BP 146/79
--- NOTE | 2024-12-20 15:36 | PN.CDI ---
CDI
- -
CDI:
Physician Documentation Request
Admit Date: 12/19/24 06:04
Dear Doctor Alberto,
Please review the following and provide your response in the progress notes.
Clinical Indicators:
- Patient admit for LLE Cellulitis
- 6/ PN 'DM-II, Uncontrolled'
- HgA1c 13.9
- Blood glucose level >500 on admission
Please clarify the relationship between these conditions:
Yes, _LLE cellulitis_ is related to/associated with/due to _diabetes__.
No, _LLE cellulitis__ is not related to/associated with/due to _diabetes__ but it is due to . (Please specify)
Unable to determine
Use of terms such as suspected, likely, concern for, or probable (associated with a specific diagnosis that is being evaluated, monitored, or treated as if it exists) are acceptable and can be coded in the inpatient setting, when documented at the
time of discharge.
Thank you,
Barak Muñiz RN
CDI Specialist
Please use your independent medical judgment in providing your response.
--- NOTE | 2024-12-20 15:37 | PN.CDI ---
CDI
- -
CDI:
Physician Documentation Request
Admit Date: 12/19/24 06:04
Dear Doctor Alberto,
Please review the following and provide your response in the progress notes.
Clinical Indicators:
- RN skin assessments indicate Stage 1 left heel pressure injury, POA
Physician documentation of the type and location of wounds is required for compliant documentation. Based on the above clinical findings and your assessment, please provide the following in your progress note:
1. Location of the ulcer/wound, including laterality.
2. Type (etiology) of ulcer/wound:
- Diabetic ulcer
- Arterial (ischemic) ulcer
- Venous stasis ulcer
- Pressure (decubitus) ulcer
- Other
Use of terms such as suspected, likely, concern for, or probable (associated with a specific diagnosis that is being evaluated, monitored, or treated as if it exists) are acceptable and can be coded in the inpatient setting, when documented at the
time of discharge.
Thank you,
Barak Muñiz RN
CDI Specialist
Please use your independent medical judgment in providing your response.
*Source: National Pressure Ulcer Advisory Panel (NPUAP)
[2024-12-20 16:09] VITALS: BP 139/74; PULSE 78
[2024-12-20 16:31] LABS: Glucose - Point of Care 254 mg/dl (70-99)
[2024-12-20] MEDS: NOVOLOG FLEXPEN-MODERATE RESISTANCE 5 UNITS SC (16:54)
--- NOTE | 2024-12-20 16:59 | CM ---
Alert awake oriented patient who lives with her daughter Gaby in a 2 story home with 3 steps to enter and 17 steps to bed/bathroom. She is independent in activates of daily living.She does not drive .She used a crutch walker x2.
No VN in past . [facility]
Ph[facility]acy [facility]
PCP Dr Cohen
PLAN Home with no needs
[2024-12-20] MEDS: GLUCOPHAGE XR EXTENDED RELEASE 500 MG PO (17:00)
[2024-12-20] MEDS: LOVENOX 40 MG SC (17:00)
[2024-12-20] MEDS: TYLENOL 650 MG PO (19:33)
[2024-12-20 21:43] LABS: Glucose - Point of Care 234 mg/dl (70-99)
[2024-12-20] MEDS: LANTUS 0.4 UNITS SC (22:02)
[2024-12-20] MEDS: NEURONTIN 600 MG PO (22:02)
[2024-12-20] MEDS: EFFEXOR XR 75 MG PO (22:02)
[2024-12-20 23:31] VITALS: BP 127/64
[2024-12-21 06:00] VITALS: BMI 59.0
[2024-12-21 07:07] LABS: Hematocrit 35.4 % (37.0-47.0); Hemoglobin 11.4 g/dL (12.0-16.0); Mean Corp Hgb Conc. 32.2 g/dL (33.0-37.0); Mean Corpuscular Hgb 28.4 pg (27.0-31.0); Mean Corpuscular Volume 88.1 fL (81.0-99.0); Mean Platelet Volume 9.8 fL (7.4-10.4); Platelet Count 314 10^3/uL (130-400); Red Blood Cell Count 4.02 10^6/uL (4.20-5.40); Red Cell Dist. Width 16.4 % (11.5-14.5); White Blood Cell Count 5.7 10^3/uL (4.8-10.8)
[2024-12-21 07:36] LABS: ALT (SGPT) 12 U/L (0-35); AST (SGOT) 19 U/L (14-36); Albumin 3.7 g/dl (3.5-5.0); Alkaline Phosphatase 132 U/L (38-126); Blood Urea Nitrogen 17 mg/dl (7-17); Calcium 9.1 mg/dl (8.4-10.2); Carbon Dioxide 22 mmol/L (22-30); Chloride 107 mmol/L (98-107); Estimated Creatinine Clearance > 125 ml/min; Glucose 246 mg/dl (70-99); Potassium 4.6 mmol/L (3.5-5.1); Sodium 135 mmol/L (135-145); Total Bilirubin 0.7 mg/dl (0.2-1.3); Total Protein 6.8 g/dl (6.3-8.2); eGFR > 60.00
[2024-12-21] MEDS: ADVAIR HFA 115/21 MCG INHALER 2 PUFF INH (08:12)
[2024-12-21 08:19] LABS: Glucose - Point of Care 268 mg/dl (70-99)
[2024-12-21 08:24] VITALS: BP 109/64
[2024-12-21] MEDS: NOVOLOG FLEXPEN-MODERATE RESISTANCE 5 UNITS SC ×2 (08:48→12:24)
[2024-12-21] MEDS: NEURONTIN 300 MG PO (08:48)
[2024-12-21] MEDS: ANCEF 10 IV ×2 (08:49→15:49)
[2024-12-21] MEDS: NOVOLOG FLEXPEN 15 UNITS SC ×2 (08:49→12:23)
[2024-12-21] MEDS: DESENEX/MITRAZOL/ZEASORB 1 APPLIC TOPICAL (08:50)
[2024-12-21] MEDS: FLUSH (NSS) 2 FLUSH IV (08:50)
[2024-12-21] MEDS: HYDROPHOR 1 APPLIC TOPICAL (08:51)
--- NOTE | 2024-12-21 10:25 | W.PN.HOSP.TC ---
Addendum entered and electronically signed by Mark Dominguez MD 12/21/24 12:27:
[id number]
Original Note:
Today's Communication/Plan
-
Abx course to complete 10 days total
Lymphedema clinic
Wound care center outpatient
Compression therapy
Vascular as needed; f/u pcp outpatient
Assessment / Plan
Assessment / Plan
Physical Exam
General: Other (54y F in no acute distress.)
HEENT: Moist mucous membranes and Other (Thick neck.)
Respiratory: Clear; No Wheezes, Rales or Rhonchi
Cardiac: S1/S2, Regular Rhythm and Murmur (II/ JINA)
GI: Other (Obese, not tender, pos BS.)
Musculoskeletal: Other (Marked bilateral LE lymphedema. Dressing in place over LLE lateral ulceration with clear oozing / discharge. No bleeding / purulence.)
Skin: Other (L foot with deep red erythema of all toes and dorsum of foot. Extension / lymphagitis into the medial aspect of the foot.)
Neuro: AO x 3
A/P: Patient is a 54y F with PMH significant for DM-II, lymphedema and morbid obesity who presents to ED for evaluation of uncontrolled DM and L foot redness.
LLE Cellulitis
- Admit for further evaluation and treatment.
- Erythema, induration and increased warmth in the L foot with spread into the medial aspect of the foot.
- IV Ancef for now and follow for clinical improvement. - Improving - will DC on cephalexin x 8 more days to complete 10 day course
- ABIS unremarkable;
-Local wound care
-Aggressive compression therapy
-Wound care outpatient
Chronic LLE Wound
Chronic Lymphedema
- Stable. Does not appear acutely infected / involved with foot cellulitis.
- Wound Care eval for additional recommendations.
- PT / Lymphedema eval.
- No DVT
-Now with LLE numbness- vascular consulted - NTD - does not believe arterial occlusive issue; more than likely lymphademia is issue
-Local wound care
-Aggressive compression therapy
-Diabetes management
-Establish follow-up care in the wound care center
DM-II, Uncontrolled.
- Marked hyperglycemia secondary to lack of insulin +/- acute infection.
- Normal anion gap.
- Restart basal : bolus insulin regimen.
- Follow glucose and cover with SSI as needed.
- Adjust regimen for improved glycemic control.
-DC on adjusted meds
Asthma without Acute Exacerbation
- Stable. Continue Advair / albuterol PRN.
Anxiety / Depression
- Stable. Continue venlafaxine.
Morbid Obesity due to excess calories
- Affects all aspects of care.
- Encourage healthy diet and increased activity with goal of weight loss.
DVT Prophylaxis: Lovenox
Code Status: Full
More than 30 minutes spent in discharge including
Final examination of the patient
Summarizing hospital stay
Instructions for continuing care to all relevant caregivers
Preparation of discharge records, prescriptions, and referral forms
Total time spent (in minutes): 36
Anticipated Discharge: Today
Subjective/Interval History
-
Date of Service: December 21, 2024
No acute events overnight; Erythema improved
Objective Data
-
Labs:
Laboratory Results
12/21/24
05:46
WBC 5.7
Hgb 11.4 L
Hct 35.4 L
Plt Count 314
Sodium 135
Potassium 4.6
Chloride 107
Carbon Dioxide 22
BUN 17
Creatinine 0.5 L
Glucose 246 H
Calcium 9.1
Total Bilirubin 0.7
AST 19
ALT 12
Alkaline Phosphatase 132 H
Vital Signs:
Vital Signs
Temp Pulse Resp BP Pulse Ox
98 F 82 18 109/64 100
06/07/25 08:24 12/21/24 08:24 12/21/24 08:24 12/21/24 08:24 12/21/24 08:24
I&O
12/20/24 12/21/24 12/22/24
06:59 06:59 06:59
Intake Total 480 / 480 2700 / 2700
Balance 480 / 480 2700 / 2700
Review of Systems
-
History Source: Patient
All other systems: Not reviewed unless documented
Data Reviewed
-
CT Scan: Image personally visualized and interpreted and Report Reviewed by me
Labs: Labs Reviewed by me
--- NOTE | 2024-12-21 10:30 | W.DS.TRANS ---
DC Summary - Director Visual
-
Discharge Instructions:
Discharge Diagnosis/Procedures LLE Cellulitis
Chronic LLE Wound
Chronic Lymphedema
Diet Diabetic, Carb Controlled,Low Fat,Low
Cholesterol
Activity As tolerated
Blood Work cbc and bmp in 1 week with pcp
Instructions:
Stand-Alone Forms:
Changes to Home Medications: Yes
Discharge Medications:
DC Medications w/original date entered in [facility]
albuterol sulfate 90 mcg/actuation aerosol inhaler 2 puff inhalation R Q4HPRN PRN sob/wheezing 03/10/23
gabapentin 300 mg capsule 300 mg PO DAILY Pain 03/10/23
metformin 500 mg tablet,extended release 24 hr 500 mg PO QPM Diabetes 03/23/23
fluticasone 250 mcg-salmeterol 50 mcg/dose blistr powdr for inhalation (Advair Diskus) 1 inh inhalation R BID Lung/Breathing Issues 12/19/24
gabapentin 300 mg capsule 600 mg PO HS Pain 12/19/24
venlafaxine 75 mg capsule,extended release 24 hr (Effexor XR) 75 mg PO HS Mental Health/Anxiety 12/19/24
cephalexin 500 mg capsule 500 mg PO QID 8 days #32 caps 12/21/24
insulin aspart U-100 100 unit/mL (3 mL) subcutaneous pen 15 unit (0.15 mL) SC AC #15 mL 12/21/24
insulin glargine 100 unit/mL (3 mL) subcutaneous pen (Lantus Solostar U-100 Insulin) 40 unit (0.4 mL) SC HS Diabetes #15 mL 12/21/24
miconazole nitrate 2 % topical powder (Miconazorb AF) 1 applic topical BID #85 grams 12/21/24
white petrolatum 42 % topical ointment (Hydrophor) 1 applic topical BID #454 grams 12/21/24
Home Medication Changes
cephalexin 500 mg capsule 500 mg PO QID 8 days #32 caps 12/21/24
insulin aspart U-100 100 unit/mL (3 mL) subcutaneous pen 15 unit (0.15 mL) SC AC #15 mL 12/21/24
insulin glargine 100 unit/mL (3 mL) subcutaneous pen (Lantus Solostar U-100 Insulin) 40 unit (0.4 mL) SC HS Diabetes #15 mL 12/21/24
miconazole nitrate 2 % topical powder (Miconazorb AF) 1 applic topical BID #85 grams 12/21/24
white petrolatum 42 % topical ointment (Hydrophor) 1 applic topical BID #454 grams 12/21/24
Pending Results: No
--- NOTE | 2024-12-21 10:30 | CM ---
PT recc for outpatient PT. Will need a paper script at sd.
[2024-12-21 11:55] LABS: Glucose - Point of Care 258 mg/dl (70-99)
[2024-12-21 15:20] VITALS: BP 123/83
== END 2024-12-21 17:21 | disposition home or self-care (01) | DRG 603 ==
LOC: 4 EAST ACU 06:04
PROVIDERS: Emergency Medicine; Physician Assistant; ADMITTING PHYSICIAN Hospitalist; ATTENDING PHYSICIAN Internal Medicine; EMERGENCY PHYSICIAN Student in an Organized Health Care Education/Training Program; FAMILY PHYSICIAN Nurse Practitioner; OTHER PHYSICIAN Surgery Vascular Surgery
DX: L03.116 Cellulitis of left lower limb (principal); Z68.43 Body mass index [BMI] 50.0-59.9, adult; I89.0 Lymphedema, not elsewhere classified; E11.65 Type 2 diabetes mellitus with hyperglycemia; J45.909 Unspecified asthma, uncomplicated; F41.9 Anxiety disorder, unspecified; F32.A Depression, unspecified; E66.01 Morbid (severe) obesity due to excess calories; Z79.4 Long term (current) use of insulin; Z59.71 Insufficient health insurance coverage; Z79.84 Long term (current) use of oral hypoglycemic drugs; Z79.899 Other long term (current) drug therapy; L89.621 Pressure ulcer of left heel, stage 1; E11.621 Type 2 diabetes mellitus with foot ulcer
CPT/HCPCS: 80048; 80053; 82947; 82962; 83036; 85025; 85027; 87070; 93922; 93925; 93970; 94640; 97116

== ENCOUNTER 2025-01-16 02:35 | Inpatient (IN) | payer OTHER, SELFPAY ==
[2025-01-15 22:19] VITALS: BMI 56.8
[2025-01-15 22:20] VITALS: BP 159/90
[2025-01-16 00:02] LABS: Hematocrit 35.2 % (37.0-47.0); Hemoglobin 11.7 g/dL (12.0-16.0); Mean Corp Hgb Conc. 33.2 g/dL (33.0-37.0); Mean Corpuscular Volume 88.4 fL (81.0-99.0); Nucleated Red Blood Cells % 0 %; Platelet Count 517 10^3/uL (130-400); Red Cell Dist. Width 15.4 % (11.5-14.5)
[2025-01-16 00:19] LABS: ALT (SGPT) 14 U/L (0-35); AST (SGOT) 14 U/L (14-36); Albumin 3.7 g/dl (3.5-5.0); Alkaline Phosphatase 196 U/L (38-126); Blood Urea Nitrogen 36 mg/dl (7-17); Calcium 9.5 mg/dl (8.4-10.2); Carbon Dioxide 23 mmol/L (22-30); Chloride 100 mmol/L (98-107); Estimated Creatinine Clearance 119 ml/min; Glucose 403 mg/dl (70-99); Potassium 5.4 mmol/L (3.5-5.1); Sodium 130 mmol/L (135-145); Total Protein 7.4 g/dl (6.3-8.2); eGFR > 60.00
--- NOTE | 2025-01-16 00:37 | ED.GENMED ---
History of Present Illness
General
Chief Complaint: Skin Problem
Source: patient and family (Daughter)
Exam Limitations: none
Time Seen by Provider: 01/15/25 22:55
Nursing documentation reviewed up to this point in time: agreed with
History of Present Illness
History of Present Illness:
Note:
CHIEF COMPLAINT(S)
Non-healing wound with new protrusion and pain, possibly infected.
HISTORY OF PRESENT ILLNESS
The patient is a 54-year-old female with a history of a non-healing wound secondary to a dogs nail injury. She presents with concerns about a new protrusion from the wound area on her lower extremity, which developed roughly one and a half to two
days ago. The patient reports that the wound becomes red and warm depending on positioning but was not particularly warm earlier in the day when evaluated by her primary care physician, Dr. Parker. The primary care physician advised the patient to
have the wound reassessed, suspecting infection as a possibility. The patient has been using mineral oil gauze dressings�which she discontinued four days ago due to new skin peeling�but reports meticulous wound care processes, cleaning the area with
soap and water two to four times daily as her supplies allow. The patients main concern is a protrusion from the wound which she describes as painful, and the surrounding skin is described as always somewhat red, more so when wrapped. Denies recent
fever with a recent temperature recorded at 97.7�F. There was no acute trauma to the new protrusion. The patient reports inadequate supplies to change dressings as frequently as would be optimal, and she has not had the opportunity to utilize
compression garments recommended by wound care due to financial constraints. The patient is also without visiting nurse support.
CHRONIC MEDICAL CONDITIONS SIGNIFICANTLY AFFECTING CARE
Lymphedema.
SOCIAL DETERMINANTS AFFECTING HEALTH
Financial difficulty impacting the ability to comply with recommended wound care supplies, such as compression garments.
REVIEW OF SYSTEMS
- Skin: Protruding growth from the wound, described as red and occasionally warm.
- Vascular/Extremities: Pain at the site of the protrusion, redness noted, concerns of non-healing nature.
PHYSICAL EXAM
- Skin: Non-healing wound with a new protrusion, area red and variably warm depending on leg elevation. Surrounding skin exhibits peeling.
- Vascular/Extremities: Warmth noted at the site of protrusion, pain reported by the patient.
Nursing notes reviewed and vital signs reviewed.
PROBLEM LIST
- Acute: Non-healing wound with protrusion and suspected infection.
- Chronic: Lymphedema.
PLAN
Order lab work to assess for infection and potential readmission for closer monitoring and wound care evaluation. Consideration for readmission if lab results are concerning. Avoid immediate debridement or incision to prevent further wounding, and
recommend follow-up with wound care specialists for further evaluation and potential intervention.
DIFFERENTIAL DIAGNOSIS
The Differential Diagnosis includes, in no particular order and is not limited to:
1. Cellulitis
2. Abscess formation
3. Chronic wound infection
4. Venous stasis ulcer
5. Lymphedema exacerbation
6. Deep vein thrombosis
7. Eczema or dermatitis
8. Bullous pemphigoid
9. Lipoma or other benign growth
10. Neoplasia or metastatic disease
Disposition:
SUMMARY OF ENCOUNTER
The patient is a 54-year-old female who visited the emergency department due to a non-healing chronic ulcer on her left lower extremity. She reports the presence of two protuberances in the wound area that have developed since her recent discharge
from the hospital. The primary reason for her visit is to address concerns about these new developments, including potential infection and pain associated with the wound.
ASSESSMENT
The primary concerns are a non-healing ulcer with new protuberances and suspected infection.
PLAN
Order lab work to assess for potential infection and evaluate the chronic wound. Consider the possibility of readmission if lab results are concerning. Recommend follow-up with wound care specialists for evaluation and intervention. Avoid immediate
invasive procedures like debridement to minimize further complications.
MEDICAL DECISION MAKING
-Complexity of Data Reviewed: Chronic conditions affecting care include lymphedema. Differential diagnosis includes cellulitis, abscess formation, chronic wound infection, venous stasis ulcer, lymphedema exacerbation, deep vein thrombosis, eczema or
dermatitis, bullous pemphigoid, lipoma or other benign growth, and neoplasia or metastatic disease.
-Data:
Category 1
Lab tests and wound culture ordered to assess potential infection.
-Risk:
Consideration of Admission/Observation: Escalation of care including admission/observation was considered given the complexity and risk of the patients presenting complaint, exam findings, and her underlying comorbidities. However, ultimately I feel
the patient is safe for outpatient management with close follow-up. Reasoning: Work-up reassuring, does not reveal any acute life/organ threatening processes, patients symptoms well controlled upon reevaluation, reexamination is reassuring, vitals
are stable, patient agreeable with discharge, reliable for follow-up.
Care significantly affected by Social Determinants of Health: Financial difficulty impacting the ability to comply with recommended wound care supplies, such as compression garments.
DIAGNOSIS
Non-healing ulcer, lower extremity, with protuberances (ICD-10: L97.1)
Suspected infection of skin and subcutaneous tissue (ICD-10: L08.9)
Lymphedema (ICD-10: I89.0)
Past History
Past History
ED Past Medical History: Asthma and NIDDM
ED Past Surgical History:
Social History
Tobacco: Non-smoker
Alcohol: None
Drug: None
Personal:
Living: with family
Employment: Employed
Family History
Family History: Other
Review of Systems
Review of Systems
Allergies reviewed?: Yes
All Other Systems: ROS reviewed and negative except as documented in HPI and ROS
Musculoskeletal: Reports joint pain and edema
Skin: Reports other (Erythema)
Psychiatric: Reports anxiety
Phy Exam
General Physical Exam
General Presentation: well appearing and no apparent distress
General Skin: warm and dry
General Habitus: debilitated and obese
General Mental: alert
General Hydration: appears well hydrated
ENT Exam
ENT Exam: EOMI, pharynx normal, neck supple and normocephalic
Eye Exam
Eye Exam: PERRL, cornea clear and conjunctiva normal
Cardiovascular Exam
Cardiovascular Exam: regular rate/rhythm, no edema, no murmur and normal peripheral pulses
Pulmonary Exam
Pulmonary Exam: lungs clear, no respiratory distress, no rales, no crackles, no rhonchi, no stridor, no wheezing and no cough
Gastrointestinal Exam
Gastrointestinal Exam: normal bowel sounds, non tender, soft, no organomegaly, no pulsatile mass and non distended
Neurological Exam
Neurological Exam: alert, oriented x3, no motor deficits and speech normal
Musculoskeletal Exam
Musculoskeletal Exam: full ROM and no edema
Skin Exam
Skin Exam: tenderness, warmth and other (Left lower extremity diabetic foot ulcer with possible abscess)
Psychiatric Exam
Psychiatric Exam: normal mood/affect
Course
Orders/Labs/Results
Orders:
Orders
01/15/25 23:49
Complete Blood Count/With Diff Urgent
Comprehensive Metabolic Panel Urgent
Blood Culture Q20M
NARCISA Source: Blood/Venous
Specimen Description:
Comment: Urgent from separate sites. If patient screens positive for possible sepsis
01/16/25 00:37
Ampicillin/Sulbactam 3 G [Unasyn] 3 gm 0.9% Sodium Chloride 100 ml [Nss] 100 ml IV NOW
01/16/25 01:03
Vancomycin [Vancocin] 2,000 mg 0.9% Sodium Chloride 500 ml [Nss] 500 ml IV NOW
01/16/25 01:26
Admit/Transfer Patient As Directed
Co-Sign Provider:
Level of Care: Inpatient admission
Assign to:: Medical/Surgical
Physician / Group: Federico
Diagnosis: LLE Wound / Infection
Reason for Hospitalization: LLE Wound / Infection
Expected length of stay greater than two midnights?: Yes
ELOS- Estimated Length of Stay in days: 3
I certify the patient meets the requirements for IP care: Yes
01/16/25 01:27
PRN Pain Medication Management As Directed
May give lesser potent ordered pain med per pt: Yes
preference::
Protocol:: Medication orders for pain may be administered in a
manner that supports deferring to patient preference
when the pt is:
- Requesting an ordered lesser potent pain medication.
Least to most potent pain medications are defined
as: acetaminophen < NSAID < tramadol < opioids
(morphine, oxycodone, hydromorphone).
- Requesting a lesser dose of the same medication IF
ORDERED.
- Requesting a less intrusive route of administration
if both routes are prescribed by the provider (PO <
IV).
01/16/25 01:28
Code Status As Directed
Resuscitation Status: Full Code
01/16/25 02:29
Insulin Glargine Lantus [Lantus] 40 units Subcutaneous Insulin Syringe [Syringe-Insulin] 0 unit SC ONCE
01/16/25 03:43
Acetaminophen [Tylenol] 650 mg PO Q4HPRN PRN
Dextrose 50%-Water [Dextrose 50% Syringe] 12.5 grams IV [id number] PRN
Glucagon [GlucaGen] 1 mg IM PRN PRN
01/16/25 03:43
Consult Notification Routine
Specialty to Notify: Surgical
Date consulting provider notified: 01/16/25
Time consulting provider notified: 07:10
Notified:: Provider
Comment: tt
SURGICAL CONSULT Routine
Consulting Provider: Aakash Rodriguez
Was physician already notified: No
Reason for consult: LLE Wound / Abscess
WOUND/OSTOMY CONSULT Routine
Reason for Consult: LLE Wound
Activity As Directed
Activity Level: Ambulate
With Assistance
Bedside Glucose Monitoring As Directed
Frequency: AC&HS
Additional Instructions:: Change to q6h if pt on TPN, tube feeding or not eating
I/O [Intake/ Output] As Directed
Frequency: Per unit guidelines
Vital Signs As Directed
Frequency: Per unit guidelines
Weight As Directed
Frequency: Daily
Oxygen Therapy [O2 Therapy] [RESP] Routine
Titrate/Wean O2 to maintain O2 sat greater than (%): 94
PT Consult [Pt Eval And Treat] Routine
Treatment: Lymphedema
Activity Level: Ambulate
With Assistance
DX Deep Vein Thrombosis Video Routine
01/16/25 06:05
Basic Metabolic Panel IN AM
Complete Blood Count/No Diff IN AM
Blood Culture Q20M
NARCISA Source: Blood/Venous
Specimen Description:
Comment: Urgent from separate sites. If patient screens positive for possible sepsis
01/16/25 07:30
Insulin Aspart Corrective Mod [Novolog Flexpen-Moderate Resistance] See Protocol SC AC
Insulin Aspart Pen [Novolog Flexpen] 14 units SC AC
01/16/25 08:00
Ampicillin/Sulbactam 3 G [Unasyn] 3 gm 0.9% Sodium Chloride 100 ml [Nss] 100 ml IV Q6H
Fluticasone/Salmeterol 115/21 [Advair Hfa 115/21 Mcg Inhaler] 2 puff INH R BID
Gabapentin [Neurontin] 300 mg PO DAILY
01/16/25 20:00
Enoxaparin Sodium [Lovenox] 60 mg SC Q12
01/16/25 22:00
Gabapentin [Neurontin] 600 mg PO HS
Venlafaxine Extended Release [Effexor Xr] 75 mg PO HS
insulin glargine [Lantus Solostar U-100 Insulin] 40 unit SC HS
Abnormal Lab Results
01/15/25 01/16/25
23:49 02:13
WBC 12.0 H 10^3/uL
(4.8-10.8)
RBC 3.98 L 10^6/uL
(4.20-5.40)
Hgb 11.7 L g/dL
(12.0-16.0)
Hct 35.2 L %
(37.0-47.0)
RDW 15.4 H %
(11.5-14.5)
Plt Count 517 H 10^3/uL
(130-400)
Abs Immat Gran (auto) 0.1 H 10^3/uL
(0-0.05)
Absolute Neuts (auto) 8.9 H 10^3/uL
(1.4-6.5)
Absolute Monos (auto) 0.9 H 10^3/uL
(0.1-0.6)
Lymphocytes % 16.5 L %
(20.5-51.1)
Sodium 130 L mmol/L
(135-145)
Potassium 5.4 H mmol/L
(3.5-5.1)
BUN 36 H mg/dl
(7-17)
Glucose 403 H mg/dl
(70-99)
Alkaline Phosphatase 196 H U/L
(38-126)
POC Glucose 383 H mg/dl
(70-99)
01/15/25 23:49
01/15/25 23:49
Vital Signs
Initial and Last Documented VS:
Initial Vital Signs
Temp Pulse Resp BP Pulse Ox
97.7 F 105 16 159/90 99
01/15/25 22:20 01/15/25 22:20 01/15/25 22:20 01/15/25 22:20 01/15/25 22:20
Last Documented Vital Signs
Temp Pulse Resp BP Pulse Ox
98.4 F 63 16 125/87 98
01/16/25 15:18 01/16/25 19:27 01/16/25 19:27 01/16/25 15:18 01/16/25 19:27
*Pulse Oximetry
SaO2: 99
Oxygen Mode of Delivery: Room air
Patient hypoxic: no
*Critical Care Note
Total Time (30-74mins, 75-104mins- exclusive of procedures): Not Applicable
ED Attending Note
-
Portions of this chart may have been created with voice recognition software.� Occasional wrong word or��sound alike� substitutions may have occurred due to the inherent limitations of voice recognition software.
Discharge Plan
Departure
Patient Disposition: Admit
Date of Disposition: 01/16/25
Time of Disposition: 00:42
Admit to: Med/Surg
Presentation/result/management discussed w/ accepting MD/DO: Hospitalist
Discharge Problem:
Nonhealing diabetic foot ulcer, Diabetic foot ulcer
Interventions
Interventions:
*Risk Screen - Suicide Last Done: 01/16/25 03:49
*Neglect/Abuse Screening Last Done: 01/15/25 22:22
*ED- Fall Risk Assessment Last Done: 01/16/25 03:31
*ED COVID-19 Vaccine History Last Done: 01/16/25 03:49
*Nursing Disposition Last Done: 01/16/25 03:31
ED-Skin Assessment Last Done: 01/16/25 01:46
Discharge Date and Time
Discharge Date/Time: 01/16/25 03:32
--- NOTE | 2025-01-16 01:30 | HPS.HSE ---
Family Physician
-
Family Physician: Alejandra Cohen
Chief Complaint
-
LLE Wound
History of Present Illness
Patient is a 54y F with PMH significant for DM-II, chronic lymphedema and morbid obesity who presents to ED complaining of LLE wound changes. Patient was admitted here from 12/19 - 12/21 for L foot cellulitis and uncontrolled DM. She has a wound to
the lateral aspect of the LLE that has been slowly healing for the past year or so. Was initially caused by a dog scratch. Patient was followed briefly by Wound Care after her admission - but notes that she was not able to afford the therapies
that they recommended. She takes good care of the wound at home. She has also been recommended lymphedema treatments / compression - but is also limited by financial constraints in this regard.
Patient states that she noted 'bumps' near the LLE wound about 2 days ago. There was increased drainage of clear fluid from the wound bed. The bumps were quite tender - and patient typically has no pain in regards to her wound.
She was seen today by her PCP and referred to the ED for evaluation of worsening wound / new changes.
Patient reports some nausea and poor appetite. She denies any fevers / chills.
No other current complaints / concerns.
Medical History
Past Medical History
Past Medical History: Reports Other
Additional Past Medical History:
DM-II
Chronic Lymphedema
Morbid Obesity
Asthma
Anxiety / Depression
Past Surgical History: Reports Other
Additional Past Surgical History:
x 3
D&C
Right Ankle ORIF
Right Wrist ORIF
Social History
Tobacco: Non-smoker
Alcohol: Occasional
Drug: None
Family History
Family History: Not pertinent
Allergies / Home Medications
Allergies reflects when Allergies were last updated in [facility].
Home Medications with original date entered in [facility]
Allergy/Medication List:
Allergies
Allergy/AdvReac Type Severity Reaction Status Date / Time
house dust Allergy Unknown Verified 12/18/24 22:31
pollen extracts (Pollen Allergy Unknown Verified 12/18/24 22:31
Extracts)
Home Medications
albuterol sulfate 90 mcg/actuation aerosol inhaler 2 puff inhalation R Q4HPRN PRN sob/wheezing 03/10/23
gabapentin 300 mg capsule 300 mg PO DAILY Pain 03/10/23
metformin 500 mg tablet,extended release 24 hr 500 mg PO QPM Diabetes 03/23/23
fluticasone 250 mcg-salmeterol 50 mcg/dose blistr powdr for inhalation (Advair Diskus) 1 inh inhalation R BID Lung/Breathing Issues 12/19/24
gabapentin 300 mg capsule 600 mg PO HS Pain 12/19/24
venlafaxine 75 mg capsule,extended release 24 hr (Effexor XR) 75 mg PO HS Mental Health/Anxiety 12/19/24
insulin glargine 100 unit/mL (3 mL) subcutaneous pen (Lantus Solostar U-100 Insulin) 40 unit (0.4 mL) SC HS Diabetes #15 mL 12/21/24
insulin aspart U-100 100 unit/mL (3 mL) subcutaneous pen 20 unit SC AC 01/16/25
Review of Systems
-
History Source: Patient
A 12 point ROS was completed and negative except as noted: Yes
Constitutional: Reports Fatigue; Denies Fever or Chills
Respiratory: Denies Cough or Trouble Breathing
Cardiac: Denies Chest Pain or Palpitations
Abdomen/GI: Reports Nausea and Anorexia; Denies Abdominal Pain, Vomiting or Diarrhea
: Denies Dysuria, Frequency or Flank Pain
Musculoskeletal: Reports Edema; Denies Joint Pain
Skin: Reports Other (Chronic wound on the L lower leg with increased drainage and new prominent lesions / tender bumps.)
Neurological: Denies Dizzy or Headache
Physical Exam
Vital Signs
Vital Signs
Temp Pulse Resp BP Pulse Ox
97.7 F 105 16 159/90 99
01/15/25 22:20 01/15/25 22:20 01/15/25 22:20 01/15/25 22:20 01/16/25 00:37
Physical Exam
General: Other (54y F in no acute distress.)
HEENT: Moist mucous membranes and Other (Thick neck.)
Respiratory: Clear; No Wheezes, Rales or Rhonchi
Cardiac: S1/S2, Regular Rhythm and Murmur (II/ JINA)
GI: Other (Obese, not tender, pos BS.)
Musculoskeletal: Other (Marked bilateral LE lymphedema. Dressing in place over LLE lateral ulceration with clear oozing / discharge. No bleeding / purulence. Two small, tender protuberant lesions adjacent to the wound which are fluctuant.)
Neuro: AO x 3
Laboratory Results
-
01/15/25 23:49
01/15/25 23:49
Laboratory Results
Total Bilirubin 0.7 mg/dl (0.2-1.3) 01/15/25 23:49
AST 14 U/L (14-36) 01/15/25 23:49
ALT 14 U/L (0-35) 01/15/25 23:49
Alkaline Phosphatase 196 U/L (38-126) H 01/15/25 23:49
Impression/Plan
-
A/P: Patient is a 54y F with PMH significant for DM-II, lymphedema and morbid obesity who presents to ED for evaluation of LLE wound.
Chronic LLE Wound with New Abscess
Chronic Lymphedema
- Admit for further evaluation and treatment.
- Continue IV abx for now.
- Wound base with significant amount of drainage - though clear.
- New protuberant, tender, fluctuant lesions adjacent to the wound concerning for underlying abscess / collection.
- Wound care / Surgery evaluations - ? need for debridement.
- PT / Lymphedema therapy.
- Had Vascular evaluation during recent admission - recommended local care / lymphedema treatment.
DM-II, Uncontrolled
Pseudohyponatremia secondary to the above
- Continue basal : bolus insulin regimen.
- SSI coverage as needed.
- A1C during recent visit was 13.9%.
Asthma without Acute Exacerbation
- Stable. Continue Advair / albuterol PRN.
Anxiety / Depression
- Stable. Continue venlafaxine.
Morbid Obesity due to excess calories
- Affects all aspects of care.
- Encourage healthy diet and increased activity with goal of weight loss.
DVT Prophylaxis: Lovenox
Code Status: Full
[2025-01-16] MEDS: UNASYN IV ×4 (01:37→20:24)
[2025-01-16 01:46] VITALS: BP 134/71
[2025-01-16] MEDS: VANCOCIN 540 MG IV (02:13)
[2025-01-16 02:14] LABS: Glucose - Point of Care 383 mg/dl (70-99)
[2025-01-16] MEDS: LANTUS 0.4 UNITS SC (02:40)
[2025-01-16 03:45] VITALS: BP 138/85
[2025-01-16 03:48] VITALS: BMI 55.8
--- NOTE | 2025-01-16 03:52 | PTCARENOTE ---
Pt arrived to [facility] from ED, ambulating with x1 assist from stretcher to bed with two canes. Pt is AAOx3, reports 7/10 pain in her left lower leg. Able to make needs known, oriented to room and call page within reach. VSS on admission.
[2025-01-16] MEDS: TYLENOL 650 MG PO (04:24)
--- NOTE | 2025-01-16 05:11 | PTCARENOTE ---
Pt had one blood culture drawn around midnight, second set ordered but never drawn. Pt is already receiving IV abx. JUANI Gomez notified, will pass along to day shift.
[2025-01-16] MEDS: NEURONTIN 300 MG PO (06:14)
[2025-01-16 06:21] LABS: Hematocrit 34.2 % (37.0-47.0); Hemoglobin 11.4 g/dL (12.0-16.0); Mean Corp Hgb Conc. 33.3 g/dL (33.0-37.0); Mean Corpuscular Volume 86.4 fL (81.0-99.0); Platelet Count 514 10^3/uL (130-400); Red Cell Dist. Width 15.1 % (11.5-14.5)
[2025-01-16 06:49] LABS: Blood Urea Nitrogen 31 mg/dl (7-17); Calcium 9.3 mg/dl (8.4-10.2); Carbon Dioxide 18 mmol/L (22-30); Chloride 102 mmol/L (98-107); Estimated Creatinine Clearance 118 ml/min; Glucose 345 mg/dl (70-99); Potassium 5.6 mmol/L (3.5-5.1); Sodium 130 mmol/L (135-145); eGFR > 60.00
[2025-01-16 07:23] LABS: Glucose - Point of Care 317 mg/dl (70-99)
[2025-01-16] MEDS: ADVAIR HFA 115/21 MCG INHALER 2 PUFF INH ×2 (07:40→19:24)
[2025-01-16 07:54] VITALS: BP 128/72
[2025-01-16] MEDS: NOVOLOG FLEXPEN 14 UNITS SC (08:27)
[2025-01-16] MEDS: NOVOLOG FLEXPEN-MODERATE RESISTANCE 7 UNITS SC (08:28)
--- NOTE | 2025-01-16 08:35 | PHA.VAN.IN ---
Assessment
- Assessment
Renal Function: Appears similar to baseline
Concomitant Antimicrobials: ampicillin/sulbactam
AUC Dosing Plan
- Dosing Variables
Dosing Weight (kg): 152
Dosing CrCl (ml/min): 118
Vd coefficient (L/kg): 0.4
- Empiric Dosing
Initial / Loading Dose: 2000mg - 01/16 02:13
Maintenance Regimen: Vanc 1500mg Q12H starting at 1800
Estimated AUC (mcg*h/mL): 519
Estimated Peak (mcg*h/mL): 35
Estimated Trough (mcg/ml): 12
Estimated Half Life (H): 7
- Monitoring
No levels ordered at this time: consider levels in next few days
Anticipate may be slower to achieve equilibrium between tissues & blood with weight > 100kg
Pharmacokinetics Vancomycin I
- -
Patient Age: 54
Patient Sex: Female
Vancomycin Day #: 1
Indication: Skin And Soft Tissue
Requesting Provider: Dr. Caballero
Pertinent Antimicrobial Allergies:
no pertinent antibiotic allergies
Height / Weight:
Height 5 ft 5 in
Actual Weight 152.01 kg
Pertinent Past Medical History: BMI ~56, DM II
- Vital Signs / Lab Results
Temp Pulse Resp BP Pulse Ox
98.1 F 91 18 128/72 97
01/16/25 07:54 01/16/25 07:54 01/16/25 07:54 01/16/25 07:54 01/16/25 07:54
Lab Results - Hematology
01/15/25 01/16/25
23:49 06:05
WBC 12.0 H 11.4 H
Lab Results - Chemistry
01/15/25 01/16/25
23:49 06:05
BUN 36 H 31 H
Creatinine 0.8 0.8
Estimated Creat Clear 119 118
Albumin 3.7
--- NOTE | 2025-01-16 09:17 | CON.GS ---
Addendum entered and electronically signed by Aakash Rodriguez MD 01/16/25 15:58:
Patient seen and examined with resident this a.mVeto as well as wound care nursing at bedside. Agree with documented history and physical with additions noted here.
HPI: 54-year-old female with multiple medical comorbidities including diabetes, chronic lymphedema and chronic lower extremity wounds. She presented secondary to worsening erythema drainage and discomfort as well as visible bumps with drainage in
the left lower extremity.
On examination of the LLE specifically there were 2 pustules with overlying necrotic skin and active draining purulence. Through palpation and pressure the purulence was able to be expressed and the necrotic debris essentially sloughed off the skin
with utilizing a gauze pad. No sharp debridement required. No additional significant surrounding necrotic tissue. Extensive edema and swelling of the tissues. Surrounding cellulitis.
Assessment/plan: Left lower extremity cellulitis with superficial boil/pustules
Examination limited but no well-defined deeper soft tissue component other than edema.
Recommend local wound care as per wound care nursing
Treatment of cellulitis with antibiotics per hospitalist
General surgery is available for further assistance if needed
Original Note:
Consultation
-
Date/Time Consultation Requested: 01/16/25, 1:30am
Date/Time Consultation Performed: 01/16/25, 9:30am
Requesting Provider: Leonel Caballero
Performing Provider: Aakash Rodriguez
Reason for Consultation: eval nonhealing LLE wound/abscesses
Medical History
-
Chief Complaint: LLE wound with new painful bumps & drainage
History of Present Illness:
Ping Wilson is a 54yo F with a hx of poorly controlled DM-II, lymphedema, and chronic LLE wound who presented with new wound changes found to be c/f abscesses, with gen surg consulted for wound eval.
Pt reports having LLE wound 2/2 dog scratch for the last year or so, which has been slowly healing. Wound care by self at home, no visiting nurse. Cleans wound regularly but unable to follow all wound care recs/dressing changes due to financial
insecurity. Pt also limited adherence to LE lymphedema treatments/compression 2/2 financial challenges. 1-2 days ago, noticed two new bumps adjacent to wound that were painful, along with new clear drainage from primary wound bed. PCP evaluated and
recommended presentation to for further workup & mgmt. On admission, pt reported some nausea and poor appetite. Denied any fevers / chills. She was started on IV unasyn 3g.
Seen by gen surg consult along with wound care at bedside this am. Pt endorses no change in sx overnight.
Past Medical History
Past Medical History: IDDM and Other (chronic lymphedema of bilateral LE)
Past Surgical History: Reviewed & Noncontributory
Social History
Tobacco: Non-Smoker
Alcohol: Occasional
Allergies / Home Medications
Allergy/AdvReac Type Severity Reaction Status Date / Time
house dust Allergy Unknown Verified 12/18/24 22:31
pollen extracts (Pollen Allergy Unknown Verified 12/18/24 22:31
Extracts)
�Medication �Instructions �Recorded �Confirmed �Type
albuterol sulfate 90 mcg/actuation 2 puff inhalation R Q4HPRN PRN 03/10/23 01/16/25 History
aerosol inhaler sob/wheezing
gabapentin 300 mg capsule 300 mg PO DAILY Pain 03/10/23 01/16/25 History
metformin 500 mg tablet,extended 500 mg PO QPM Diabetes 03/23/23 01/16/25 History
release 24 hr
fluticasone 250 mcg-salmeterol 50 1 inh inhalation R BID 12/19/24 01/16/25 History
mcg/dose blistr powdr for Lung/Breathing Issues
inhalation (Advair Diskus)
gabapentin 300 mg capsule 600 mg PO HS Pain 12/19/24 01/16/25 History
venlafaxine 75 mg capsule,extended 75 mg PO HS Mental Health/Anxiety 12/19/24 01/16/25 History
release 24 hr (Effexor XR)
insulin glargine 100 unit/mL (3 40 unit (0.4 mL) SC HS Diabetes 12/21/24 01/16/25 Rx
mL) subcutaneous pen (Lantus #15 mL
Solostar U-100 Insulin)
furosemide 20 mg tablet 20 mg PO DAILY 01/16/25 01/16/25 History
insulin aspart U-100 100 unit/mL 20 unit SC AC 01/16/25 01/16/25 History
(3 mL) subcutaneous pen
Review of Systems
-
History Source: Patient
Constitutional: Fever (denies fever/chills)
Abdomen/GI: Nausea
Skin: Other (pain LLE wound in area of new bumps)
A 10 point review of systems was completed, and was negative except as per HPI.
Physical Exam
Vital Signs
Temp Pulse Resp BP Pulse Ox
98.1 F 91 18 128/72 97
01/16/25 07:54 01/16/25 07:54 01/16/25 07:54 01/16/25 07:54 01/16/25 07:54
01/15/25 01/16/25 01/17/25
06:59 06:59 06:59
Actual Weight 152.01 kg
Body Mass Index (BMI) 55.8
Lab Results
01/16/25 06:05
01/16/25 06:05
WBC 11.4 10^3/uL (4.8-10.8) H 01/16/25 06:05
Hgb 11.4 g/dL (12.0-16.0) L 01/16/25 06:05
Hct 34.2 % (37.0-47.0) L 01/16/25 06:05
Plt Count 514 10^3/uL (130-400) H 01/16/25 06:05
Abs Immat Gran (auto) 0.1 10^3/uL (0-0.05) H 01/15/25 23:49
Neutrophils % 74.1 % (42.2-75.2) 01/15/25 23:49
Physical Exam
General: Other (sitting up in bed )
HEENT: Normocephalic and Atraumatic
Respiratory: Non Labored Respirations
Musculoskeletal: Edema (significant lymphedema of bilateral LEs)
Skin: Other (open, shallow erythematous wound above L ankle with serous, non-purulent drainage; two abscesses w purulent drainage adjacent to wound, with abscess on posterior ankle more erythematous & painful to palpation )
Neuro: Awake and Alert
Data Reviewed
-
Labs: Labs Reviewed by me
Critical Care Time (in minutes): 30
Total Time Spent with Patient (in minutes): 15
Assessment / Plan
-
Patient is a 54yo F with a hx of poorly controlled DM-II, lymphedema, and chronic LLE wound who presents with new wound-associated abscesses with purulent drainage c/f infection, currently without need for surgical intervention.
Assessment: Presentation (exam, elevated WBC) c/w LLE cellulitis with abscess formation. Infection likely introduced through skin breakdown 2/2 severe lymphedema & adjacent nonhealing open wound (~1 yr). On exam, pus able to be evacuated from open
abscesses from manual pressure so low c/f infection extension within deeper soft tissue layers. Given superficial nature of infection, no need for surgical intervention at this time.
Plan:
- Manual pressure drainage of open abscesses performed at bedside on exam today, no need for I&D at this time
- Appreciate wound care team recs
- Continue abx (unasyn), per primary team
- Continue lymphedema mgmt & DM-II control
- Surgical team signed off
--- NOTE | 2025-01-16 10:29 | WOUNDNOTE ---
R 5TH MTH (PLANTAR LATERAL)
--- NOTE | 2025-01-16 10:32 | WOUNDNOTE ---
R FOOT (LATERAL PLANTAR)
--- NOTE | 2025-01-16 10:32 | WOUNDNOTE ---
L CALF (LATERAL LOWER)
--- NOTE | 2025-01-16 10:34 | WOUNDNOTE ---
[facility] RN note: Patient admitted with LLE wound infection. Patient lives with daughter.
See H&P for complete history.
PMH: DM, lymphedema, morbid obesity, stay last month for L foot cellulitis, asthma, ORIF R ankle, ORIF R wrist, LLE venous ulcer.
Wound Location and type/assessment: Patient admitted with: LLE full thickness venous ulcer draining large amount of yellow serous drainage with 2 local abscesses with some purulent drainage, MASD abdominal/groin folds and coccyx crease, R plantar
lateral flat white blister suspect r/t neuropathy. +LE edema. +Pedal pulses. Patient stated she never followed up with [facility] but she did buy Setopress compression wraps that they recommended before but hasn't used them yet. She stated she has been
using the Kavon wraps.
Appetite: good.
Pressure redistribution devices in place: Advanta with Accumax. Patient ambulates to bathroom with crutches.
Plan: Patient seen with Dr. Rodriguez who expressed the 2 abscesses. Confirmed local care and Kavon wraps and that she can try the Setopress compression wraps at home. Dressing changed LLE. Skin prep and silicone border foam applied to R plantar lateral
5th MTH. Bilateral knee high Kavon wraps applied. Heels off bed with pillows and bariatric air chair cushion. Bed switched to a [facility] Wide air bed with help from bed [employer] Demetri. Instructed patient importance of making appointment with a
apartment leasing agent to assess her R plantar lateral foot, foot wear. Patient aware importance of losing weight. Updated Dr. Gary re: R plantar lateral 5th MTH blister starting; defer to hospitalist if inpatient vs outpatient apartment leasing agent evaluation
indicated. Hospitalist approved skin/wound care and bilateral knee high Kavon wraps as tolerated (may remove q hs). Discussed with RN Will.
Care plan to be updated and will follow as needed.
Note to case management requested for discharge: VN if patient wants. Patient instructed to ask CM about VN if she wants.
Instructed patient to follow up at wound care center and podiatry upon discharge.
--- NOTE | 2025-01-16 10:35 | WOUNDNOTE ---
[facility] RN note: Patient admitted with LLE wound infection. Patient lives with daughter.
See H&P for complete history.
PMH: DM, lymphedema, morbid obesity, stay last month for L foot cellulitis, asthma, ORIF R ankle, ORIF R wrist, LLE venous ulcer.
Wound Location and type/assessment: Patient admitted with: LLE full thickness venous/lymphedema related ulcer draining large amount of yellow serous drainage with 2 local abscesses with some purulent drainage, MASD abdominal/groin folds and coccyx
crease, R plantar lateral 5th MTH white blister suspect r/t neuropathy. edema/friction. +LE edema. +Pedal pulses. Patient stated she never followed up with [facility] but she did buy Setopress compression wraps that they recommended before but hasn't
used them yet. She stated she has been using knee high Kavon wraps.
Appetite: good.
Pressure redistribution devices in place: Advanta with Accumax. Patient ambulates to bathroom with crutches.
Plan: Patient seen with Dr. Rodriguez who expressed the 2 LLE abscesses. Confirmed with Dr. Rodriguez local care and knee high Kavon wraps and that she can try the Setopress compression wraps at home. Dressing changed LLE. Skin prep and silicone border
foam applied to R plantar lateral 5th MTH. Bilateral knee high Kavon wraps applied. Heels off bed with pillows and bariatric air chair cushion. Bed switched to a [facility] Wide air bed with help from bed too.me Demetri. Instructed patient importance of
making appointment with a tuck pointer to assess her R plantar lateral foot, foot wear. Patient aware importance of losing weight. Updated Dr. Gary re: R plantar lateral 5th MTH blister starting; defer to hospitalist if inpatient vs outpatient
tuck pointer evaluation indicated. Hospitalist approved skin/wound care and bilateral knee high Kavon wraps as tolerated (may remove q hs). Discussed with RN Will.
Care plan to be updated and will follow as needed.
Note to case management requested for discharge: VN if patient wants. Patient instructed to ask CM about VN if interested.
Instructed patient to follow up at wound care center and podiatry upon discharge.
[2025-01-16 11:17] LABS: Glucose - Point of Care 208 mg/dl (70-99)
--- NOTE | 2025-01-16 11:25 | PN.DE.MGMTRT ---
Insulin Management
- -
01/16/2025 Diabetes Management Consult
Patient admitted 01/16 with non healing wound LLE. PMH diabetes, lymphedema, morbid obesity, asthma. Prior to admission taking lantus 40 units @ HS with novolog 15 units AC. A1C 13.9% 6.4 cr .8, eGFR > 60.
Patient is awake, alert and oriented, able to discuss diabetes care. States she has had diabetes 3 years, follows with primary doctor for ongoing management.
Patient states yesterday her doctor told her to increase her AC novolog to 20 units. She uses the ladarius CGM.
HS glucose last evening 403; patient received 40 units lantus @ hs, fasting glucose 345. 14 units novolog ordered AC.
Will increase HS lantus to 44 units and increase ac novolog to 20 units with moderate corrective insulin.
Discussed with nurse
Will follow
Diabetes History
- -
Type of Diabetes: 2 requiring insulin
Pre-Admission Diabetes Regimen
01/15/25 01/16/25
23:49 06:05
Creatinine 0.8 0.8
Insulin Pump Settings
IP Diabetes Regimen
01/15/25 01/16/25 01/16/25
23:49 02:13 06:05
Glucose 403 H 345 H
POC Glucose 383 H
01/16/25 01/16/25
07:21 11:15
Glucose
POC Glucose 317 H 208 H
Patient Education
--- NOTE | 2025-01-16 13:07 | W.PN.UPDATE ---
Update Note
Progress Note Update
Patient seen at bedside, LLE Wound, chronic wound with superficial abscess drained at bedside
-Await MRI
-ABx for soft tissue infection
-Continue wound care, add packing lle
-PT/OT/Lymphedema evaluation
-Patient likely best suited for follow up at wound care center given complexity of medical comorbidities
-Await MRI for further plan, will trial ABx and local wound care at present time
-Cultures taken
[2025-01-16] MEDS: NOVOLOG FLEXPEN 20 UNITS SC ×2 (13:30→17:35)
[2025-01-16] MEDS: NOVOLOG FLEXPEN-MODERATE RESISTANCE 3 UNITS SC (13:31)
--- NOTE | 2025-01-16 13:31 | CM ---
email manager reviewed patient's chart and met with patient and patient states she lives with her daughter in a multilevel home with 3 steps to enter, patient reports that she is slow but independent with adl's and ambulation with crutches. Case
land acquisition manager reviewed with patient visiting nurses and patient declined visiting nurses. Home when stable, no needs.
PCP: Alejandra Cohen
Pharmacy: [facility]
--- NOTE | 2025-01-16 14:48 | W.PN.HOSP.TC ---
Today's Communication/Plan
-
IV antibiotics pending cultures
Wound care.
MRI of the right foot rule out osteomyelitis
Adjust insulin dosage. Continue serial blood glucose check
Assessment / Plan
Assessment / Plan
Impression/plan
Patient is a 54y F with PMH significant for DM-II, lymphedema and morbid obesity who presents to ED for evaluation of LLE wound
Acute on chronic left lower wound with abscess and surrounding cellulitis complicated with lymphedema.
Nontoxic-appearing without evidence of sepsis upon admission.
Multiple superficial wounds/abscesses self draining with no clinical indication for surgical intervention at this point
Continue broad-spectrum antibiotics, currently on vancomycin/Unasyn pending cultures.
MRSA screen pending
Wound culture pending.
Blood cultures pending
Strict blood glucose control
Right fifth metatarsal plantar aspect ulcer patient with diabetes and neuropathy
Podiatry input appreciated with no indication for surgical intervention pending MRI
Diabetes type 2, poorly controlled.
Recent hemoglobin A1c at 13
Continue diabetes regimen, Lantus/aspart dose had been adjusted
Basal bolus protocol with serial Accu-Cheks
Asthma without Acute Exacerbation
- Stable. Continue Advair / albuterol PRN.
Anxiety / Depression
- Stable. Continue venlafaxine.
Morbid Obesity due to excess calories
- Affects all aspects of care.
- Encourage healthy diet and increased activity with goal of weight loss.
DVT Prophylaxis: Lovenox
Code Status: Full
Anticipated Discharge: 24 - 48 hours
Subjective/Interval History
-
Date of Service: January 16, 2025
Objective Data
-
Labs:
Laboratory Results
01/16/25
06:05
WBC 11.4 H
Hgb 11.4 L
Hct 34.2 L
Plt Count 514 H
Sodium 130 L
Potassium 5.6 H
Chloride 102
Carbon Dioxide 18 L
BUN 31 H
Creatinine 0.8
Glucose 345 H
Calcium 9.3
Vital Signs:
Vital Signs
Temp Pulse Resp BP Pulse Ox
98.1 F 91 18 128/72 97
01/16/25 07:54 01/16/25 07:54 01/16/25 07:54 01/16/25 07:54 01/16/25 08:14
I&O
01/15/25 01/16/25 01/17/25
06:59 06:59 06:59
Intake Total 240 / 240
Balance 240 / 240
Physical Exam
-
General: Well Developed and No Apparent Distress
HEENT: Normocephalic, Atraumatic and Moist Mucous Membranes
Respiratory: Clear to Auscultation
Cardiac: Regular Rhythm and S1/S2; Negative Murmur, Rub or Gallop
GI: Soft, Nontender, Nondistended and Normal Bowel Sounds; Negative Organomegaly
Rectal: Deferred by Provider
Musculoskeletal: No Clubbing, No Cyanosis and No Edema
Skin: Negative Rash
Neuro: Nonfocal/Grossly Intact
[2025-01-16 15:18] VITALS: BP 125/87
[2025-01-16 17:20] LABS: Glucose - Point of Care 251 mg/dl (70-99)
[2025-01-16] MEDS: NOVOLOG FLEXPEN-MODERATE RESISTANCE 5 UNITS SC (17:35)
[2025-01-16] MEDS: VANCOCIN 530 MG IV (17:36)
[2025-01-16] MEDS: LOVENOX 60 MG SC (20:19)
[2025-01-16] MEDS: DESENEX/MITRAZOL/ZEASORB 1 APPLIC TOPICAL (20:19)
[2025-01-16 21:25] LABS: Glucose - Point of Care 137 mg/dl (70-99)
[2025-01-16] MEDS: EFFEXOR XR 75 MG PO (21:44)
[2025-01-16] MEDS: NEURONTIN 600 MG PO (21:44)
[2025-01-16] MEDS: LANTUS 0.44 UNITS SC (21:44)
[2025-01-16 23:35] VITALS: BP 126/63
[2025-01-17] MEDS: UNASYN IV ×4 (02:15→19:47)
[2025-01-17] MEDS: VANCOCIN 530 MG IV (05:50)
[2025-01-17 06:00] VITALS: BMI 56.3
[2025-01-17 07:02] LABS: Glucose - Point of Care 208 mg/dl (70-99)
[2025-01-17 07:25] LABS: Hematocrit 34.2 % (37.0-47.0); Hemoglobin 11.0 g/dL (12.0-16.0); Mean Corp Hgb Conc. 32.2 g/dL (33.0-37.0); Mean Corpuscular Volume 87.7 fL (81.0-99.0); Nucleated Red Blood Cells % 0 %; Platelet Count 449 10^3/uL (130-400); Red Cell Dist. Width 15.6 % (11.5-14.5)
[2025-01-17] MEDS: NEURONTIN 300 MG PO (07:30)
[2025-01-17] MEDS: TYLENOL 650 MG PO (07:31)
[2025-01-17] MEDS: ADVAIR HFA 115/21 MCG INHALER 2 PUFF INH ×2 (07:40→19:58)
[2025-01-17] MEDS: LOVENOX 60 MG SC ×2 (07:55→19:47)
[2025-01-17] MEDS: NOVOLOG FLEXPEN-MODERATE RESISTANCE 3 UNITS SC ×3 (07:55→16:37)
[2025-01-17 07:56] VITALS: BP 159/73
[2025-01-17] MEDS: NOVOLOG FLEXPEN 20 UNITS SC ×3 (07:56→16:37)
[2025-01-17] MEDS: DESENEX/MITRAZOL/ZEASORB 1 APPLIC TOPICAL ×2 (07:57→19:50)
[2025-01-17] MEDS: HYDROPHOR 1 APPLIC TOPICAL (07:57)
[2025-01-17 07:59] LABS: Blood Urea Nitrogen 17 mg/dl (7-17); Calcium 8.9 mg/dl (8.4-10.2); Carbon Dioxide 20 mmol/L (22-30); Chloride 108 mmol/L (98-107); Estimated Creatinine Clearance > 125 ml/min; Glucose 213 mg/dl (70-99); Potassium 4.7 mmol/L (3.5-5.1); Sodium 134 mmol/L (135-145); eGFR > 60.00
--- NOTE | 2025-01-17 08:16 | W.PN.UPDATE ---
Update Note
Progress Note Update
Stable right foot, negative MRI
-Recommended strict glycemic control and routine podiatry follow up
-LLE wound likely source of white count, needs wound care follow up
-Sign off, reconsult if surgical needs arise
--- NOTE | 2025-01-17 09:40 | PHA.VAN.FU ---
Vancomycin Assessment / Plan
- Assessment
Renal Function: Stable
WBC's are: WNL
In the past 24 hrs, patient has been: Afebrile
Concomitant Antimicrobials: ampicillin/sulbactam
- Dosing Plan
Continue: Vanc 1500mg Q12H
- Monitoring Plan
No level(s) ordered at this time: consider levels in next few days
Monitoring Comments: Anticipate may be slower to achieve steady state d/t weight > 100kg
- Follow Up
Pharmacy will continue to follow.
Vancomycin Follow UP
- -
Patient Age: 54
Patient Sex: Female
Vancomycin Day #: 2
Indication: Skin And Soft Tissue
Requesting Provider: Dr. Caballero
Pertinent Antimicrobial Allergies:
no pertinent antibiotic allergies
Height / Weight:
Height 5 ft 5 in
Actual Weight 153.513 kg
Pertinent Past Medical History: BMI ~56, DM II
- Vital Signs / Lab Results
Temp Pulse Resp BP Pulse Ox
98.1 F 86 18 159/73 99
01/17/25 07:56 01/17/25 07:56 01/17/25 07:56 01/17/25 07:56 01/17/25 07:56
Lab Results - Hematology
01/15/25 01/16/25 01/17/25
23:49 06:05 07:10
WBC 12.0 H 11.4 H 9.5
Lab Results - Chemistry
01/15/25 01/16/25 01/17/25
23:49 06:05 07:10
BUN 36 H 31 H 17
Creatinine 0.8 0.8 0.6
Estimated Creat Clear 119 118 > 125
Albumin 3.7
Microbiology Results
01/16/25 05:53 MRSA Screen - Final
Nose No Methicillin Resistant Staphylococcus aureus isolated.
01/16/25 06:05 Blood Culture - Preliminary
Blood/Venous No Growth in 24 hours- Final report to follow
01/15/25 23:49 Blood Culture - Preliminary
Blood/Venous No Growth in 24 hours- Final report to follow
--- NOTE | 2025-01-17 10:30 | W.PN.HOSP.TC ---
Today's Communication/Plan
-
D/C vancomycin
Follow-up cultures
Continue antibiotics
Assessment / Plan
Assessment / Plan
Impression/plan
Patient is a 54y F with PMH significant for DM-II, lymphedema and morbid obesity who presents to ED for evaluation of LLE wound
Acute on chronic left lower wound with abscess and surrounding cellulitis complicated with lymphedema.
Nontoxic-appearing without evidence of sepsis upon admission.
Multiple superficial wounds/abscesses self draining with no clinical indication for surgical intervention at this point
Continue broad-spectrum antibiotics, currently on Unasyn pending cultures.
MRSA screen negative, D/C vancomycin
Wound culture pending.
Blood cultures pending
Strict blood glucose control
Right fifth metatarsal plantar aspect ulcer patient with diabetes and neuropathy
Podiatry input appreciated with no indication for surgical intervention pending MRI
Diabetes type 2, poorly controlled.
Recent hemoglobin A1c at 13
Continue diabetes regimen, Lantus/aspart dose had been adjusted
Basal bolus protocol with serial Accu-Cheks
Asthma without Acute Exacerbation
- Stable. Continue Advair / albuterol PRN.
Anxiety / Depression
- Stable. Continue venlafaxine.
Morbid Obesity due to excess calories
- Affects all aspects of care.
- Encourage healthy diet and increased activity with goal of weight loss.
Hyponatremia
� Improving with resuscitation
- Continue to monitor
DVT Prophylaxis: Lovenox
Code Status: Full
Update 4�DC'd vancomycin as MRSA negative; increase Lantus from 44 units nightly to 47 nightly
Anticipated Discharge: 24 - 48 hours
Subjective/Interval History
-
Date of Service: January 17, 2025
No acute event, MRI negative for acute osteomyelitis
Objective Data
-
Labs:
Laboratory Results
01/17/25
07:10
WBC 9.5
Hgb 11.0 L
Hct 34.2 L
Plt Count 449 H
Sodium 134 L
Potassium 4.7
Chloride 108 H
Carbon Dioxide 20 L
BUN 17
Creatinine 0.6
Glucose 213 H
Calcium 8.9
Vital Signs:
Vital Signs
Temp Pulse Resp BP Pulse Ox
98.1 F 86 18 159/73 99
01/17/25 07:56 01/17/25 07:56 01/17/25 07:56 01/17/25 07:56 01/17/25 07:56
I&O
01/16/25 01/17/25 01/18/25
06:59 06:59 06:59
Intake Total 240 / 240 770 / 770
Balance 240 / 240 770 / 770
Review of Systems
-
History Source: Patient
All other systems: Not reviewed unless documented
Data Reviewed
-
MRI: Report Reviewed by me
Labs: Labs Reviewed by me
[2025-01-17 10:51] LABS: Glucose - Point of Care 245 mg/dl (70-99)
[2025-01-17 15:36] VITALS: BP 113/58
[2025-01-17 16:20] LABS: Glucose - Point of Care 204 mg/dl (70-99)
[2025-01-17 21:10] LABS: Glucose - Point of Care 139 mg/dl (70-99)
[2025-01-17] MEDS: EFFEXOR XR 75 MG PO (21:47)
[2025-01-17] MEDS: LANTUS 0.47 UNITS SC (21:47)
[2025-01-17] MEDS: NEURONTIN 600 MG PO (21:47)
[2025-01-17 23:06] VITALS: BP 130/64
[2025-01-18] MEDS: UNASYN IV ×2 (02:36→09:08)
[2025-01-18 05:16] VITALS: BMI 56.5
[2025-01-18 07:10] VITALS: BP 116/62
[2025-01-18] MEDS: ADVAIR HFA 115/21 MCG INHALER 2 PUFF INH ×2 (07:13→21:18)
[2025-01-18 07:22] LABS: Glucose - Point of Care 163 mg/dl (70-99)
[2025-01-18 08:27] LABS: Hematocrit 31.5 % (37.0-47.0); Hemoglobin 10.1 g/dL (12.0-16.0); Mean Corp Hgb Conc. 32.1 g/dL (33.0-37.0); Mean Corpuscular Volume 89.5 fL (81.0-99.0); Platelet Count 394 10^3/uL (130-400); Red Cell Dist. Width 15.7 % (11.5-14.5)
[2025-01-18 08:45] LABS: ALT (SGPT) 11 U/L (0-35); AST (SGOT) 14 U/L (14-36); Albumin 3.2 g/dl (3.5-5.0); Alkaline Phosphatase 174 U/L (38-126); Blood Urea Nitrogen 12 mg/dl (7-17); Calcium 8.6 mg/dl (8.4-10.2); Carbon Dioxide 24 mmol/L (22-30); Chloride 107 mmol/L (98-107); Estimated Creatinine Clearance > 125 ml/min; Glucose 167 mg/dl (70-99); Potassium 4.4 mmol/L (3.5-5.1); Sodium 135 mmol/L (135-145); Total Protein 6.4 g/dl (6.3-8.2); eGFR > 60.00
[2025-01-18] MEDS: NOVOLOG FLEXPEN 20 UNITS SC ×3 (09:01→17:19)
[2025-01-18] MEDS: NOVOLOG FLEXPEN-MODERATE RESISTANCE 1 UNITS SC ×2 (09:01→17:21)
[2025-01-18] MEDS: LOVENOX 60 MG SC ×2 (09:04→20:16)
[2025-01-18] MEDS: NEURONTIN 300 MG PO (09:04)
[2025-01-18] MEDS: DESENEX/MITRAZOL/ZEASORB 1 APPLIC TOPICAL ×2 (09:05→20:18)
[2025-01-18] MEDS: HYDROPHOR 1 APPLIC TOPICAL (09:07)
--- NOTE | 2025-01-18 11:07 | W.PN.HOSP.TC ---
Today's Communication/Plan
-
Switch to ceftriaxone
f/u final cultures
wound care
Assessment / Plan
Assessment / Plan
General: Well Developed and No Apparent Distress
HEENT: Normocephalic, Atraumatic and Moist Mucous Membranes
Respiratory: Clear to Auscultation
Cardiac: Regular Rhythm and S1/S2; Negative Murmur, Rub or Gallop
GI: Soft, Nontender, Nondistended and Normal Bowel Sounds; Negative Organomegaly
Rectal: Deferred by Provider
Musculoskeletal: LE edema bilaterally; More weeping today, than yesterday on left lower extremity; decreased draiange
Skin: Negative Rash
Neuro: Nonfocal/Grossly Intact
Impression/plan
Patient is a 54y F with PMH significant for DM-II, lymphedema and morbid obesity who presents to ED for evaluation of LLE wound
Acute on chronic left lower wound with abscess and surrounding cellulitis complicated with lymphedema.
Nontoxic-appearing without evidence of sepsis upon admission.
Multiple superficial wounds/abscesses self draining with no clinical indication for surgical intervention at this point
Continue broad-spectrum antibiotics, currently on Unasyn pending cultures.
MRSA screen negative, D/C vancomycin
Wound culture pending: Prelim Serratia Marcescens - pending finalized culture
Blood cultures pending
Strict blood glucose control
Right fifth metatarsal plantar aspect ulcer patient with diabetes and neuropathy
Podiatry input appreciated with no indication for surgical intervention pending MRI
Diabetes type 2, poorly controlled.
Recent hemoglobin A1c at 13
Continue diabetes regimen, Lantus/aspart dose had been adjusted
Basal bolus protocol with serial Accu-Cheks
Asthma without Acute Exacerbation
- Stable. Continue Advair / albuterol PRN.
Anxiety / Depression
- Stable. Continue venlafaxine.
Morbid Obesity due to excess calories
- Affects all aspects of care.
- Encourage healthy diet and increased activity with goal of weight loss.
Hyponatremia
� Improving with resuscitation
- Continue to monitor
DVT Prophylaxis: Lovenox
Code Status: Full
Update C'd vancomycin as MRSA negative; increase Lantus from 44 units nightly to 47 nightly
Update 01/18- Prelim Serratia Marcescens - pending finalized culture; - Resistant to Unasyn -- more weeping today - monitor; switch abx to Ceftriaxone. hopeful dc within 24-48 hours
Anticipated Discharge: 24 - 48 hours
Subjective/Interval History
-
Date of Service: January 18, 2025
more weeping today
Objective Data
-
Labs:
Laboratory Results
01/18/25
07:44
WBC 6.7
Hgb 10.1 L
Hct 31.5 L
Plt Count 394
Sodium 135
Potassium 4.4
Chloride 107
Carbon Dioxide 24
BUN 12
Creatinine 0.6
Glucose 167 H
Calcium 8.6
Total Bilirubin 0.7
AST 14
ALT 11
Alkaline Phosphatase 174 H
Vital Signs:
Vital Signs
Temp Pulse Resp BP Pulse Ox
98.1 F 83 16 116/62 99
01/18/25 07:10 01/18/25 07:16 01/18/25 07:16 01/18/25 07:10 01/18/25 07:16
I&O
01/17/25 01/18/25 01/19/25
06:59 06:59 06:59
Intake Total 770 / 770 1200 / 1200
Balance 770 / 770 1200 / 1200
Review of Systems
-
History Source: Patient
All other systems: Not reviewed unless documented
Data Reviewed
-
MRI: Report Reviewed by me
Labs: Labs Reviewed by me
[2025-01-18 11:35] LABS: Glucose - Point of Care 136 mg/dl (70-99)
[2025-01-18] MEDS: NOVOLOG FLEXPEN-MODERATE RESISTANCE SC (13:08)
[2025-01-18] MEDS: STERILE WATER FOR INJECTION 10 ML IV (13:10)
[2025-01-18] MEDS: ROCEPHIN 1000 MG IV (13:10)
[2025-01-18 15:26] VITALS: BP 124/75
[2025-01-18 16:35] LABS: Glucose - Point of Care 165 mg/dl (70-99)
[2025-01-18 21:03] LABS: Glucose - Point of Care 106 mg/dl (70-99)
[2025-01-18] MEDS: LANTUS 0.47 UNITS SC (21:31)
[2025-01-18] MEDS: NEURONTIN 600 MG PO (21:31)
[2025-01-18] MEDS: EFFEXOR XR 75 MG PO (21:31)
[2025-01-18 22:59] VITALS: BP 133/72
[2025-01-19 06:00] VITALS: BMI 56.7
[2025-01-19 07:00] VITALS: BP 112/63
[2025-01-19] MEDS: ADVAIR HFA 115/21 MCG INHALER 2 PUFF INH ×2 (07:13→20:49)
[2025-01-19 07:33] LABS: Hematocrit 31.1 % (37.0-47.0); Hemoglobin 10.3 g/dL (12.0-16.0); Mean Corp Hgb Conc. 33.1 g/dL (33.0-37.0); Mean Corpuscular Volume 91.2 fL (81.0-99.0); Platelet Count 418 10^3/uL (130-400); Red Cell Dist. Width 15.9 % (11.5-14.5)
[2025-01-19 07:37] LABS: ALT (SGPT) 13 U/L (0-35); AST (SGOT) 16 U/L (14-36); Albumin 3.4 g/dl (3.5-5.0); Alkaline Phosphatase 180 U/L (38-126); Blood Urea Nitrogen 10 mg/dl (7-17); Calcium 8.8 mg/dl (8.4-10.2); Carbon Dioxide 23 mmol/L (22-30); Chloride 109 mmol/L (98-107); Estimated Creatinine Clearance > 125 ml/min; Glucose 157 mg/dl (70-99); Potassium 4.4 mmol/L (3.5-5.1); Sodium 136 mmol/L (135-145); Total Protein 6.8 g/dl (6.3-8.2); eGFR > 60.00
[2025-01-19 07:49] LABS: Glucose - Point of Care 159 mg/dl (70-99)
[2025-01-19] MEDS: NOVOLOG FLEXPEN 20 UNITS SC ×3 (08:54→17:03)
[2025-01-19] MEDS: NOVOLOG FLEXPEN-MODERATE RESISTANCE 1 UNITS SC (08:55)
[2025-01-19 09:06] LABS: Iron 49 ug/dl (37-170)
[2025-01-19] MEDS: LASIX 20 MG PO (09:08)
[2025-01-19] MEDS: NEURONTIN 300 MG PO (09:09)
[2025-01-19] MEDS: LOVENOX 60 MG SC ×2 (09:09→19:53)
[2025-01-19] MEDS: HYDROPHOR 1 APPLIC TOPICAL (09:10)
[2025-01-19] MEDS: DESENEX/MITRAZOL/ZEASORB 1 APPLIC TOPICAL ×2 (09:11→19:52)
[2025-01-19 09:15] LABS: Total Iron Binding Capacity 247 ug/dl (265-497)
[2025-01-19 09:43] LABS: Ferritin 208.0 ng/ml (11.1-264.0)
[2025-01-19 09:58] LABS: Vitamin B12 > 1000 pg/ml (239-931)
--- NOTE | 2025-01-19 10:57 | W.PN.HOSP.TC ---
Today's Communication/Plan
-
Continue IV antibiotics and compression therapy
I bandaged bilateral lower extremities today
Assessment / Plan
Assessment / Plan
54-year-old female with lymphedema with left lower extremity wound
On examination patient is awake and alert
Cardiovascular system S1-S2 appreciated
Chest clear to auscultation
Abdomen soft and nontender
Bilateral lower extremity lymphedema
Redness and edema with weeping on the left lower extremity ulcer base is clean
# Acute on chronic left lower extremity wound with abscess, surrounding cellulitis complicated with lymphedema
No evidence of sepsis on admission
Multiple superficial wounds/abscesses self draining with no surgical intervention
Currently on ceftriaxone, vancomycin discontinued
Wound cultures with Serratia
Blood cultures-
Start Lasix back for edema
Will need compression therapy
# Right fifth metatarsal plantar aspect ulcer
Podiatry evaluation appreciated no indication for surgical intervention
MRI of the lower extremity-no septic arthritis or osteomyelitis
# Poorly controlled diabetes type 2 hemoglobin A1c 13
Patient was on Lantus insulin 40 units at night, 20 units AC, metformin 500 mg every afternoon as outpatient
Currently on 47 units at bedtime, NovoLog 20 AC with Accu-Cheks and sliding scale coverage. Add metformin .
# Hyponatremia improved
# Hyperkalemia improved
# Asthma-continue Albuterol, Advair or equivalent
# Diabetic neuropathy-continue gabapentin
# Anxiety and depression-continue Effexor
# Anemia-JEFF- Relace iron
# Morbid obesity with a BMI of 56
# DVT prophylaxis-Lovenox
# Full code
D/W RN at bed side
Part of this note was created using voice recognition system. Occasional wrong word or��sound alike� substitutions may have inadvertently occurred due to the inherent limitations of voice recognition software. If noted kindly bring it to my
attention for correction.
Anticipated Discharge: 24 - 48 hours
Subjective/Interval History
-
Date of Service: January 19, 2025
Objective Data
-
Labs:
Laboratory Results
01/19/25
06:59
WBC 7.1
Hgb 10.3 L
Hct 31.1 L
Plt Count 418 H
Sodium 136
Potassium 4.4
Chloride 109 H
Carbon Dioxide 23
BUN 10
Creatinine 0.6
Glucose 157 H
Calcium 8.8
Total Bilirubin 0.6
AST 16
ALT 13
Alkaline Phosphatase 180 H
Vital Signs:
Vital Signs
Temp Pulse Resp BP Pulse Ox
97.8 F 74 16 112/63 98
01/19/25 07:00 01/19/25 09:08 01/19/25 07:17 01/19/25 09:08 01/19/25 07:17
I&O
01/18/25 01/19/25 01/20/25
06:59 06:59 06:59
Intake Total 1200 / 1200 1200 / 1200
Balance 1200 / 1200 1200 / 1200
[2025-01-19 12:02] LABS: Glucose - Point of Care 143 mg/dl (70-99)
[2025-01-19] MEDS: FEOSOL 325 MG PO (12:15)
[2025-01-19] MEDS: ROCEPHIN 1000 MG IV (12:17)
[2025-01-19] MEDS: NOVOLOG FLEXPEN-MODERATE RESISTANCE SC (12:17)
[2025-01-19] MEDS: STERILE WATER FOR INJECTION 10 ML IV (12:18)
[2025-01-19 15:00] VITALS: BP 135/63
[2025-01-19 16:51] LABS: Glucose - Point of Care 236 mg/dl (70-99)
[2025-01-19] MEDS: NOVOLOG FLEXPEN-MODERATE RESISTANCE 3 UNITS SC (17:02)
[2025-01-19] MEDS: GLUCOPHAGE XR EXTENDED RELEASE 500 MG PO (17:03)
[2025-01-19 21:41] LABS: Glucose - Point of Care 133 mg/dl (70-99)
[2025-01-19] MEDS: LANTUS 0.47 UNITS SC (21:46)
[2025-01-19] MEDS: EFFEXOR XR 75 MG PO (21:47)
[2025-01-19] MEDS: NEURONTIN 600 MG PO (21:47)
[2025-01-19 23:18] VITALS: BP 131/76
[2025-01-20 05:55] VITALS: BMI 57.1
[2025-01-20 06:00] VITALS: BMI 57.1
[2025-01-20] MEDS: ADVAIR HFA 115/21 MCG INHALER 2 PUFF INH ×2 (06:59→20:27)
[2025-01-20 07:22] LABS: Glucose - Point of Care 160 mg/dl (70-99)
--- NOTE | 2025-01-20 07:45 | PN.DE.MGMTRT ---
Insulin Management
- -
01/20/2025: Diabetes Management Follow
Patient admitted 01/16 with non healing wound LLE. PMH: Diabetes, lymphedema, morbid obesity, asthma. Prior to admission taking Lantus 40 units @ HS with NovoLog 15 units AC. States she has had diabetes 3 years, follows with primary doctor for
ongoing management.
Patient states yesterday her doctor told her to increase her AC NovoLog to 20 units. She uses the ladarius CGM. A1C 13.9% 6.4, Cr 0.6, eGFR > 60.
Patient is awake, alert and oriented, sitting up in bed, eating lunch, able to discuss diabetes care.
01/19 had 1 elevated glucose to 236 pre-dinner yesterday. HS glucose was 133, patient received 47 units Lantus @ hs, FBG 160 this AM.
Will make no changes to current regimen. Cont Metformin 500mg QPM, HS Lantus 47 units and AC NovoLog 20 units with moderate corrective insulin.
Will cont to follow. Discussed with nurse
Diabetes History
- -
Type of Diabetes: 2 requiring insulin
Pre-Admission Diabetes Regimen
Insulin Pump Settings
IP Diabetes Regimen
01/19/25 01/19/25 01/19/25
07:48 12:00 16:50
POC Glucose 159 H 143 H 236 H
01/19/25 01/20/25
21:39 07:21
POC Glucose 133 H 160 H
Meal type: Dinner
Meal type: Lunch
Meal type: Breakfast
Amount consumed: 100%
Amount consumed: 100%
Amount consumed: 100%
Patient Education
[2025-01-20 07:51] VITALS: BP 127/57
[2025-01-20] MEDS: NOVOLOG FLEXPEN 20 UNITS SC ×3 (08:19→16:32)
[2025-01-20] MEDS: NOVOLOG FLEXPEN-MODERATE RESISTANCE 1 UNITS SC (08:19)
[2025-01-20] MEDS: NEURONTIN 300 MG PO (08:20)
[2025-01-20] MEDS: FEOSOL 325 MG PO (08:20)
[2025-01-20] MEDS: LOVENOX 60 MG SC ×2 (08:20→20:38)
[2025-01-20] MEDS: LASIX 20 MG PO (08:20)
[2025-01-20] MEDS: HYDROPHOR 1 APPLIC TOPICAL (08:21)
[2025-01-20] MEDS: DESENEX/MITRAZOL/ZEASORB TOPICAL (08:22)
[2025-01-20 08:41] LABS: Hematocrit 30.6 % (37.0-47.0); Hemoglobin 9.7 g/dL (12.0-16.0); Mean Corp Hgb Conc. 31.7 g/dL (33.0-37.0); Mean Corpuscular Volume 89.0 fL (81.0-99.0); Platelet Count 403 10^3/uL (130-400); Red Cell Dist. Width 15.7 % (11.5-14.5)
[2025-01-20 10:02] LABS: ALT (SGPT) 15 U/L (0-35); AST (SGOT) 20 U/L (14-36); Alkaline Phosphatase 173 U/L (38-126); Blood Urea Nitrogen 10 mg/dl (7-17); Calcium 8.9 mg/dl (8.4-10.2); Chloride 107 mmol/L (98-107); Estimated Creatinine Clearance > 125 ml/min; Glucose 156 mg/dl (70-99); Potassium 4.4 mmol/L (3.5-5.1); Sodium 136 mmol/L (135-145); Total Protein 6.7 g/dl (6.3-8.2); eGFR > 60.00
[2025-01-20 10:29] LABS: Albumin 3.5 g/dl (3.5-5.0); Carbon Dioxide 23 mmol/L (22-30)
[2025-01-20 11:11] LABS: Glucose - Point of Care 143 mg/dl (70-99)
[2025-01-20] MEDS: NOVOLOG FLEXPEN-MODERATE RESISTANCE SC ×2 (11:36→16:28)
[2025-01-20] MEDS: ROCEPHIN 1000 MG IV (12:59)
[2025-01-20] MEDS: STERILE WATER FOR INJECTION 10 ML IV (12:59)
--- NOTE | 2025-01-20 13:00 | WOUNDNOTE ---
R GREAT TOE TIP (not new as per patient)
--- NOTE | 2025-01-20 13:00 | WOUNDNOTE ---
R 5TH MTH (PLANTAR LATERAL)
--- NOTE | 2025-01-20 13:00 | WOUNDNOTE ---
WOC RN note: LE wounds improved, smaller, pain improved. LLE edema less however wounds still draining large amount of serous drainage. Current wound care appropriate. R plantar lateral 5th MTH blister dry/improved. Dressings changed LLE. Silicone
foam maintained on R plantar foot (dated today). Bariatric air chair cushion under le's/heels. Skin on heels and sacrum intact. Patient instructed wound care and Kavon wrap application. She stated she doesn't need VN that her daughter can help her.
She plans to follow up with a wound care center, paper tube grader and lymphedema therapist.
--- NOTE | 2025-01-20 13:00 | WOUNDNOTE ---
R FOOT/HEEL (lateral) (not new)
--- NOTE | 2025-01-20 13:00 | WOUNDNOTE ---
L CALF (LOWER ANTERIOR LATERAL)
[2025-01-20 15:03] VITALS: BP 149/75
--- NOTE | 2025-01-20 15:39 | W.PN.HOSP.TC ---
Today's Communication/Plan
-
Antibiotics consolidated to ceftriaxone
Continue wound care
Insulin regimen being adjusted
Assessment / Plan
Assessment / Plan
54-year-old female with lymphedema with left lower extremity wound
# Acute on chronic left lower extremity wound with abscess, surrounding cellulitis complicated with lymphedema
No evidence of sepsis on admission
Multiple superficial wounds/abscesses self draining with no surgical intervention
Currently on ceftriaxone, vancomycin discontinued
Wound cultures with Serratia
Blood cultures-
Start Lasix back for edema
Will need compression therapy
# Right fifth metatarsal plantar aspect ulcer
Podiatry evaluation appreciated no indication for surgical intervention
MRI of the lower extremity-no septic arthritis or osteomyelitis
# Poorly controlled diabetes type 2 hemoglobin A1c 13
Patient was on Lantus insulin 40 units at night, 20 units AC, metformin 500 mg every afternoon as outpatient
Currently on 47 units at bedtime, NovoLog 20 AC with Accu-Cheks and sliding scale coverage. Add metformin .
# Hyponatremia improved
# Hyperkalemia improved
# Asthma-continue Albuterol, Advair or equivalent
# Diabetic neuropathy-continue gabapentin
# Anxiety and depression-continue Effexor
# Anemia-JEFF- Relace iron
# Morbid obesity with a BMI of 56
# DVT prophylaxis-Lovenox
# Full code
D/W RN at bed side
Anticipated Discharge: 24 - 48 hours
Subjective/Interval History
-
Date of Service: January 20, 2025
Objective Data
-
Labs:
Laboratory Results
01/20/25
08:07
WBC 6.7
Hgb 9.7 L
Hct 30.6 L
Plt Count 403 H
Sodium 136
Potassium 4.4
Chloride 107
Carbon Dioxide 23
BUN 10
Creatinine 0.6
Glucose 156 H
Calcium 8.9
Total Bilirubin 0.5
AST 20
ALT 15
Alkaline Phosphatase 173 H
Vital Signs:
Vital Signs
Temp Pulse Resp BP Pulse Ox
99.0 F 88 16 149/75 96
01/20/25 15:03 01/20/25 15:03 01/20/25 15:03 01/20/25 15:03 01/20/25 15:03
I&O
01/19/25 01/20/25 01/21/25
06:59 06:59 06:59
Intake Total 1200 / 1200 1919 / 1919
Balance 1200 / 1200 1919 / 1919
Physical Exam
-
General: Well Developed and No Apparent Distress
HEENT: Normocephalic, Atraumatic and Moist Mucous Membranes
Respiratory: Clear to Auscultation
Cardiac: Regular Rhythm and S1/S2; Negative Murmur, Rub or Gallop
GI: Soft, Nontender, Nondistended and Normal Bowel Sounds; Negative Organomegaly
Rectal: Deferred by Provider
Musculoskeletal: No Clubbing, No Cyanosis and No Edema
Skin: Negative Rash
Neuro: Nonfocal/Grossly Intact
[2025-01-20 16:08] LABS: Glucose - Point of Care 106 mg/dl (70-99)
[2025-01-20] MEDS: GLUCOPHAGE XR EXTENDED RELEASE 500 MG PO (16:32)
--- NOTE | 2025-01-20 16:36 | CM ---
Discharge POC: Patient does not want HH services after discharge. Therapy is recommending outpatient PT. Will need a script.
[2025-01-20] MEDS: DESENEX/MITRAZOL/ZEASORB 1 APPLIC TOPICAL (20:40)
[2025-01-20 21:33] LABS: Glucose - Point of Care 144 mg/dl (70-99)
[2025-01-20] MEDS: LANTUS 0.47 UNITS SC (22:11)
[2025-01-20] MEDS: NEURONTIN 600 MG PO (22:12)
[2025-01-20] MEDS: EFFEXOR XR 75 MG PO (22:12)
[2025-01-20 23:25] VITALS: BP 127/64
[2025-01-21 05:45] VITALS: BMI 57.3
[2025-01-21] MEDS: ADVAIR HFA 115/21 MCG INHALER 2 PUFF INH (07:34)
[2025-01-21 07:56] LABS: Hematocrit 32.0 % (37.0-47.0); Hemoglobin 10.0 g/dL (12.0-16.0); Mean Corp Hgb Conc. 31.3 g/dL (33.0-37.0); Mean Corpuscular Volume 89.9 fL (81.0-99.0); Platelet Count 423 10^3/uL (130-400); Red Cell Dist. Width 15.7 % (11.5-14.5)
[2025-01-21 08:04] LABS: Glucose - Point of Care 143 mg/dl (70-99)
--- NOTE | 2025-01-21 08:04 | PN.DE.MGMTRT ---
Insulin Management
- -
01/21/2025: Diabetes Management Follow up
Patient admitted 01/16 with non healing wound LLE. PMH: Diabetes, lymphedema, morbid obesity, asthma. Prior to admission taking Lantus 40 units @ HS with NovoLog 15 units AC. States she has had diabetes 3 years, follows with primary doctor for
ongoing management.
Patient states yesterday her doctor told her to increase her AC NovoLog to 20 units. She uses the ladarius CGM. A1C 13.9% 6.4, Cr 0.6, eGFR > 60.
Patient is awake, alert and oriented, sitting up in bed, eating lunch, able to discuss diabetes care.
01/20 glucose range 106 to 160, HS 144. Received 47 units lantus @ hs.
01/21 Fasting glucose 143. Will make no changes to current regimen. Cont Metformin XR 500mg QPM, HS Lantus 47 units and AC NovoLog 20 units with moderate corrective insulin.
Discussed with nurse.
Will cont to follow.
Diabetes History
- -
Type of Diabetes: 2 requiring insulin
Pre-Admission Diabetes Regimen
01/20/25
08:07
Creatinine 0.6
Insulin Pump Settings
IP Diabetes Regimen
01/20/25 01/20/25 01/20/25
08:07 11:10 16:07
Glucose 156 H
POC Glucose 143 H 106 H
01/20/25
21:32
Glucose
POC Glucose 144 H
Meal type: Lunch
Meal type: Breakfast
Amount consumed: 100%
Amount consumed: 100%
Patient Education
[2025-01-21 08:11] VITALS: BP 130/61
[2025-01-21] MEDS: NOVOLOG FLEXPEN-MODERATE RESISTANCE SC ×2 (08:33→12:21)
[2025-01-21 08:43] LABS: ALT (SGPT) 19 U/L (0-35); AST (SGOT) 25 U/L (14-36); Albumin 3.7 g/dl (3.5-5.0); Alkaline Phosphatase 172 U/L (38-126); Blood Urea Nitrogen 11 mg/dl (7-17); Calcium 9.2 mg/dl (8.4-10.2); Carbon Dioxide 24 mmol/L (22-30); Chloride 107 mmol/L (98-107); Estimated Creatinine Clearance > 125 ml/min; Glucose 138 mg/dl (70-99); Potassium 4.2 mmol/L (3.5-5.1); Sodium 138 mmol/L (135-145); Total Protein 7.1 g/dl (6.3-8.2); eGFR > 60.00
[2025-01-21] MEDS: NOVOLOG FLEXPEN 20 UNITS SC ×2 (08:47→12:21)
[2025-01-21] MEDS: DESENEX/MITRAZOL/ZEASORB 1 APPLIC TOPICAL (08:48)
[2025-01-21] MEDS: FEOSOL 325 MG PO (08:48)
[2025-01-21] MEDS: HYDROPHOR 1 APPLIC TOPICAL (08:48)
[2025-01-21] MEDS: NEURONTIN 300 MG PO (08:49)
[2025-01-21] MEDS: LASIX 20 MG PO (08:49)
[2025-01-21] MEDS: LOVENOX 60 MG SC (09:04)
[2025-01-21 11:55] LABS: Glucose - Point of Care 114 mg/dl (70-99)
[2025-01-21] MEDS: ROCEPHIN 1000 MG IV (12:22)
[2025-01-21] MEDS: STERILE WATER FOR INJECTION 10 ML IV (12:22)
--- NOTE | 2025-01-21 13:35 | W.DCSUMMARY ---
Discharge Summary
Discharge Data
Date of Admission: 01/16/25
Date of Discharge: 01/21/25
-
Pending Results: No
Hospital Course
Left lower extremity cellulitis with abscesses. No evidence of sepsis upon admission. Multiple superficial wounds and abscesses self draining with no surgical intervention required. Initially on broad-spectrum antibiotics. Wound culture with
multiple gram-negative pathogens. Eventually antibiotics narrowed to ceftriaxone alone. Ongoing wound care with improvement and almost complete resolution of cellulitis and no further purulence from the wound. Antibiotics will be discontinued the
day of discharge. Wound care to be continued at home.
Right fifth metatarsal plantar aspect ulcer. MRI with no evidence of osteomyelitis or septic arthritis. Evaluated by podiatry with no further recommendations
Poorly controlled insulin-dependent diabetes. Hemoglobin A1c 13. Insulin regimen has been adjusted with continuation of Lantus and NovoLog. Dose of Lantus increased to 47 units at bedtime. NovoLog continue with 20 units AC.
Discharge Plan
-
Patient Disposition: Home (Routine Discharge)
Discharge Diagnosis/Procedures: Left lower extremity cellulitis with purulence.
IDDM with hyperglycemia
Condition: Good
Diet: Diabetic, Carb Controlled
Activity Restrictions/Additional Instructions:
Wound Care Instructions
LLE wound care-clean with saline or soap and water, Aquaphor ointment to dry intact skin Le's daily, alginate, gauze pads, ABD pads, secure with Kerlix wrap, change dressings twice a day and as needed for leakage. May reduce to daily if drainage
become small.
R plantar lateral 5th MTH-swab with no sting skin prep or Betadine (allow to dry), cover with border foam or gauze dressing, change daily.
Miconazole powder to abdominal/groin folds and coccyx crease twice a day.
Bilateral knee high Kavon or Setopress wraps as tolerated (pad ankle creases with ABD pad or non woven gauze pads under Kavon); may remove q hs; re-wrap daily.
Frequent LE elevation.
Follow up with weight yardage checker to evaluate R lateral plantar 5th MTH dry blister/skin lesion.
Follow up at wound care center call for an appointment.
Referrals:
Alejandra Cohen CRNP [Family Provider, Family Practice]
Prescriptions:
New
polyethylene glycol 3350 17 gram Powder In Packet
17 g PO DAILY Qty: 30 0RF
Continued
gabapentin 300 mg Capsule
300 mg PO DAILY
albuterol sulfate 90 mcg/actuation Hfa Aerosol Inhaler
2 puff INHALATION R Q4HPRN PRN (Reason: sob/wheezing)
metformin 500 mg tablet extended release 24 hr
500 mg PO QPM
fluticasone propion-salmeterol [Advair Diskus] 250-50 mcg/dose Blister With Device
1 inh INHALATION R BID
venlafaxine [Effexor XR] 75 mg Capsule,Extended Release 24hr
75 mg PO HS
gabapentin 300 mg Capsule
600 mg PO HS
insulin aspart U-100 100 unit/mL (3 mL) insulin pen
20 unit SC AC
furosemide 20 mg Tablet
20 mg PO DAILY
Changed
insulin glargine [Lantus Solostar U-100 Insulin] 100 unit/mL (3 mL) insulin pen
47 unit SC HS Qty: 15 0RF
Discharge Orders:
Discharge Patient (As Directed); Ordered 01/21/25
Ordered By: Paul Gary
Discharge Date and Time
Print Language: CROATIAN
--- NOTE | 2025-01-21 13:46 | CM ---
Patient stable for d/c today
Therapy rec OP therapy, TT hospitalist for script
No other CM needs at this time
Plan: Home w/ OP PT
[2025-01-21 15:38] VITALS: BP 124/67
== END 2025-01-21 16:58 | disposition home or self-care (01) | DRG 638 ==
LOC: 4 WEST ACU 02:35
PROVIDERS: Internal Medicine; ADMITTING PHYSICIAN Hospitalist; ATTENDING PHYSICIAN Internal Medicine; CONSULT PHYSICIAN Student in an Organized Health Care Education/Training Program; CONSULT PHYSICIAN Surgery; EMERGENCY PHYSICIAN Student in an Organized Health Care Education/Training Program; FAMILY PHYSICIAN Nurse Practitioner
DX: E11.621 Type 2 diabetes mellitus with foot ulcer (principal); E11.52 Type 2 diabetes mellitus with diabetic peripheral angiopathy with gangrene; L03.116 Cellulitis of left lower limb; Z68.43 Body mass index [BMI] 50.0-59.9, adult; L02.416 Cutaneous abscess of left lower limb; E11.65 Type 2 diabetes mellitus with hyperglycemia; E66.01 Morbid (severe) obesity due to excess calories; F32.A Depression, unspecified; F41.9 Anxiety disorder, unspecified; I87.8 Other specified disorders of veins; I89.0 Lymphedema, not elsewhere classified; J45.909 Unspecified asthma, uncomplicated; Z79.899 Other long term (current) drug therapy; Z79.84 Long term (current) use of oral hypoglycemic drugs; Z59.86 Financial insecurity; Z79.4 Long term (current) use of insulin; Z79.51 Long term (current) use of inhaled steroids
CPT/HCPCS: 73720; 80048; 80053; 82607; 82728; 82962; 83540; 83550; 85025; 85027; 87040; 87070; 87075; 87077; 87147; 87186; 87205; 94640; 97162; 99285; A9575